=== PATIENT | male | born 1980 | race Caucasian/White ===

== ENCOUNTER 2018-03-12 19:18 | Inpatient (IN) ==
[2018-03-12] MEDS ORDERED: Sod Chloride 0.9% Inj 1,000 ML IV.SIG ONE (19:56)
[2018-03-12] MEDS ORDERED: Acetaminophen 325 MG Tablet PO ONE (19:56)
--- NOTE | 2018-03-12 20:05 | ED ---
HPI General Chief Complaint: Shortness of Breath/Dyspnea Stated Complaint: Shortness of breath Time Seen by Provider: 03/12/18 19:56 Source: patient Mode of arrival: ambulatory Limitations: no limitations History of Present Illness 37-year-old male with history of cough congestion pleuritic chest pain and developing shortness of breath over the past several days with left-sided chest discomfort for approximately a week to 2 weeks in duration. Subjective fever and chills. Patient does smoke cigarettes does admit to alcohol use denies substance use. Patient was seen in the emergency department for altered level consciousness January 27 and felt to have possibly overdosed on heroin and had ingested alcohol patient denies this. Patient takes no prescription medications denies any allergies. Patient had cough productive of rene yellow sputum. Due to progressive worsening symptoms presents now for evaluation. MD Complaint: Reports shortness of breath, cough, pain with inspiration and chest pain Onset (ago): week(s) (2) Context: Reports occurred during exertion; Denies recent illness, choking/ aspiration, medication noncompliance, allergen exposure, recent travel, smoke/ fume exposure, anxiety, trauma/injury, elevated blood glucose and CO exposure Severity: moderate Consistency/Duration: constant and progressively worsening Relieving factors: other (shallow respirations) Exacerbating factors: exertion, movement, coughing, inspiration and deep breaths Known history of: Reports asthma and IVDU (denies); Denies COPD, congestive heart failure, diabetes, recurrent pneumonia, aspiration pneumonia, HIV, PE and DVT Associated symptoms: Reports chest pain, pain with inspiration, fever, cough, sputum production (rust colored) and hemoptysis; Denies wheezing, orthopnea, lower extremity pain, polyuria, polydipsia, paresthesias, palpitations, carpopedal spasm, diaphoresis, nausea/vomiting, syncope, abdominal pain, rash, sense of impending doom, chest congestion, dizziness and lightheadedness Treatment prior to arrival: Reports none Related Data Home oxygen amount: none Home Medications Medication Instructions Recorded Confirmed No Known Home Medications 03/12/18 03/12/18 Allergies Allergy/AdvReac Type Severity Reaction Status Date / Time No Known Allergies Allergy Verified 03/12/18 19:47 Review of Systems ROS: all other systems reviewed are negative PMFSH History History Provided By: Patient (Asthma tobacco use alcohol use denies substance use) Medical History Medical History Patient denies medical problems (Acute) Surgical History Surgical History Hx of eye surgery (Acute) Social History Social History Substance History: No History of Abuse Second Hand Smoke Exposure: Yes Smoking Status: Current every day smoker Tobacco Type: Cigarettes How Often Do You Have a Drink Containing Alcohol: 2 to 3 times a week Recent Travel in [facility] within the Last 8 Weeks: No Recent Out of Country Travel within the Last 8 Weeks: No Immunization History Tetanus Immunization: <5 Years Exam Narrative Exam Narrative: GENERAL: Well-nourished, well-developed patient. No acute distress no respiratory distress. SKIN: Focused skin assessment warm/dry. HEAD: Normocephalic. EYES: No scleral icterus. No injection or drainage. NECK: Supple, trachea midline. No JVD or lymphadenopathy. CARDIOVASCULAR: Regular rate and rhythm without murmurs, gallops, or rubs. RESPIRATORY: Breath sounds equal bilaterally. No wheezing. Diminished breath sounds left base. No accessory muscle use. Chest wall: No crepitus no ecchymosis no abrasion no bony step-off or palpable abnormality. GASTROINTESTINAL: Abdomen soft, non-tender, nondistended. MUSCULOSKELETAL: No cyanosis, or edema. Bilateral dorsalis pedis and radial pulses 2+ to palpation negative Homans no calf tenderness to palpation. BACK: Nontender without obvious deformity. No CVA tenderness. Course Consultations Consultation #1: discussed with Dr Brown for admission Time: 21:53 Initial Documented Vital Signs Temperature 100.1 F H 03/12/18 19:23 Pulse Rate 94 H 03/12/18 19:23 Respiratory Rate 20 03/12/18 19:23 Blood Pressure 116/69 03/12/18 19:23 Pulse Oximetry 96 03/12/18 19:23 Last Documented Vital Signs Temperature 100.1 F H 03/12/18 19:23 Pulse Rate 94 H 03/12/18 19:23 Respiratory Rate 20 03/12/18 19:23 Blood Pressure 116/69 03/12/18 19:23 Pulse Oximetry 98 03/12/18 19:56 Medical Decision Making MDM Narrative Medical decision making narrative: 37-year-old male with tobacco use alcohol use presents with 2 weeks of pleuritic left-sided chest pain now with cough productive of rust colored sputum and fever. Patient placed on vehicle monitor technician IV access obtained specimens collected and sent for resulting patient will be evaluated for pneumonia PE pneumothorax rib fracture and atypical chest pain Chest x-ray patient has large infiltrate involving the left lower lobe and lingula no obvious lung collapse possible effusion white count is 21,000 with left shift patient presents with heart rate greater than 90 temperature elevation in the emergency department only 100.1 the patient has been experiencing fever and chills with night sweats at home. Patient's lactic acid is not elevated but has large pneumonia therefore at this point time patient does meet Sirs/sepsis criterion patient has received IV antibiotics for community-acquired pneumonia and will be admitted for ongoing IV antibiotics DuoNeb updrafts as needed will most likely need [facility] protocol in view of history of frequent alcohol use. Discussed with Dr Brown. Medical Screen Exam Complete: Yes Emergency Medical Condition: Yes Differential Diagnosis Differential Diagnosis: Pleurisy, pneumonia, PE, pneumothorax, rib fracture, atypical chest pain, ACS Medical Records Medical records reviewed: Yes I reviewed the patient's medical records. Lab Data Result diagrams: 03/12/18 20:25 03/12/18 20:25 Lab Results 03/12/18 03/12/18 03/12/18 Range/Units 20:25 20:25 20:25 CBC w Diff Slide review pending WBC 21.6 H (4.0-11.0) th/mm3 RBC 4.45 L (4.50-5.90) mil/mm3 Hgb 13.1 (13.0-17.0) gm/dL Hct 38.2 L (39.0-51.0) % MCV 85.9 (80.0-100.0) fL MCH 29.5 (27.0-34.0) pg MCHC 34.3 (32.0-36.0) % RDW 13.5 (11.6-17.2) % Plt Count 272 (150-450) th/mm3 MPV 8.4 (7.0-11.0) fL Neut % (Auto) 82.3 H (16.0-70.0) % Lymph % (Auto) 6.3 L (9.0-44.0) % [place] % (Auto) 11.2 H (0.0-8.0) % Eos % (Auto) 0.0 (0.0-4.0) % Baso % (Auto) 0.2 (0.0-2.0) % Neut # (Auto) 17.8 H (1.8-7.7) th/mm3 Lymph # (Auto) 1.4 (1.0-4.8) th/mm3 [place] # (Auto) 2.4 H (0.0-0.9) th/mm3 Eos # (Auto) 0.0 (0.0-0.4) th/mm3 Baso # (Auto) 0.0 (0.0-0.2) th/mm3 WBC Differential . Diff Scan Auto diff confirmed Differential Comment . Platelet Estimate Normal (Normal) Platelet Morphology Normal (Normal) RBC Morphology Normal (Normal) Sodium 137 (136-145) meq/L Potassium 3.7 (3.5-5.1) meq/L Chloride 103 (98-107) meq/L Carbon Dioxide 25.4 (21.0-32.0) meq/L Anion Gap 9 (5-15) meq/L BUN 10 (7-18) mg/dL Creatinine 0.89 (0.60-1.30) mg/dL Estimated GFR Greater than 89 (>89) mL/min Random Glucose 115 H (74-106) mg/dL Lactic Acid 1.1 (0.4-2.0) mmol/L Calcium 8.3 L (8.5-10.1) mg/dL Total Bilirubin 0.5 (0.2-1.0) mg/dL AST 80 H (15-37) U/L ALT 98 H (12-78) U/L Alkaline Phosphatase 169 H (45-117) U/L Troponin I Less than 0.02 L (0.02-0.05) ng/mL Total Protein 7.1 (6.4-8.2) g/dL Albumin 2.6 L (3.4-5.0) g/dL Serum Alcohol Less than 3 (0-5) mg/dL Imaging Data Radiologist's impression: Chest X-Ray 03/12/18 19:56 CONCLUSION: Large area of pneumonia on the left. Discharge Plan Discharge Disposition Patient Disposition: 30 Still Patient Discharge Condition Condition: Stable Discharge Details Diagnosis: Community acquired pneumonia, Sepsis Physicians Team ED Provider: Keturah Salcedo Primary Care Provider: Primary Care Samanta,Arlene Rxs /Orders / Referrals /Forms Prescriptions: No Action No Known Home Medications RF: 0 Discharge Interventions Interventions: Vital Signs Last Done: 03/12/18 19:23 Status ED Status: With Doctor
--- NOTE | 2018-03-12 20:14 | XR ---
EXAM DATE: 03/12/2018 8:11 PM EST AGE/SEX: 37 years / Male INDICATIONS: Shortness of breath with left side chest pain. CLINICAL DATA: This is the patient's initial encounter. Patient reports that signs and symptoms have been present for 2 weeks and indicates a pain score of 5/10. MEDICAL/SURGICAL HISTORY: None. None. COMPARISON: [facility] [place] 1[place] SING[place] AP, [place]/27/2018. . FINDINGS: Dense consolidation has developed of the left mid and lower lung, appears to involve the lower lobe a nd the lingula. Mild volume loss is noted. I don't see a pneumothorax. The right lung is clear. Heart size stable, within normal limits. CONCLUSION: Large area of pneumonia on the left. Electronically signed by: Jona Birmingham MD 03/12/2018 8:13 PM EST
[2018-03-12] MEDS ORDERED: Azithromycin Inj 500 MG in Sodium Chlor 0.9% Inj 250 ML IV.SIG ONE (20:30)
[2018-03-12] MEDS ORDERED: Ketorolac Inj 30 MG/ML (IVP) Vial IV.PUSH ONE (20:31)
[2018-03-12 20:45] LABS: Baso % (Auto) 0.2 % (0.0-2.0); Hematocrit 38.2 % (39.0-51.0); Hemoglobin 13.1 gm/dL (13.0-17.0); Lymph # (Auto) 1.4 th/mm3 (1.0-4.8); Lymph % (Auto) 6.3 % (9.0-44.0); Mean Corpuscular HGB Conc 34.3 % (32.0-36.0); Mean Corpuscular Hemoglobin 29.5 pg (27.0-34.0); Mean Corpuscular Volume 85.9 fL (80.0-100.0); Mean Platelet Volume 8.4 fL (7.0-11.0); Mono # (Auto) 2.4 th/mm3 (0.0-0.9); Mono % (Auto) 11.2 % (0.0-8.0); Neut # (Auto) 17.8 th/mm3 (1.8-7.7); Neut % (Auto) 82.3 % (16.0-70.0); Platelet Count 272 th/mm3 (150-450); Red Blood Count 4.45 mil/mm3 (4.50-5.90); Red Cell Distribution Width 13.5 % (11.6-17.2); White Blood Count 21.6 th/mm3 (4.0-11.0)
[2018-03-12 20:49] LABS: Chloride 103 meq/L (98-107); Potassium 3.7 meq/L (3.5-5.1); Sodium 137 meq/L (136-145)
[2018-03-12 20:53] LABS: Calcium 8.3 mg/dL (8.5-10.1)
[2018-03-12 20:54] LABS: Albumin 2.6 g/dL (3.4-5.0); Anion Gap 9 meq/L (5-15); Blood Urea Nitrogen 10 mg/dL (7-18); Carbon Dioxide 25.4 meq/L (21.0-32.0); Glucose,Random 115 mg/dL (74-106)
[2018-03-12 20:56] LABS: Alanine Aminotransferase 98 U/L (12-78); Aspartate Aminotransferase 80 U/L (15-37); Glomerular Filtration Rate Greater Than 89 mL/min (>89)
[2018-03-12 20:58] LABS: Total Protein 7.1 g/dL (6.4-8.2)
[2018-03-12 20:59] LABS: Alkaline Phosphatase 169 U/L (45-117)
[2018-03-12 21:07] LABS: RBC Morphology Normal (Normal)
[2018-03-12 21:08] LABS: Platelet Estimate Normal (Normal); Platelet Morphology Normal (Normal)
[2018-03-12] MEDS ORDERED: LORazepam 1 MG Tablet PO PRN (21:50)
[2018-03-12] MEDS ORDERED: Haloperidol Inj 5 MG/ML Ampul IV.PUSH PRN (21:50)
[2018-03-12] MEDS ORDERED: Bisacodyl 10 MG Supp RECTAL PRN (21:52)
[2018-03-12 22:14] LABS: Bilirubin,Urine Negative (Negative); Clarity,Urine Clear (Clear); Color,Urine Yellow (Yellw/Straw); Glucose,Urine (UA) 250 mg/dL (Negative); Leukocyte Esterase,Urine Negative (Negative); Nitrite,Urine Negative (Negative); Specific Gravity,Urine Less/Equal 1.005 (1.002-1.035)
[2018-03-12 22:22] LABS: Amphetamine Screen,Urine Neg (Neg); Bacteria,Urine Rare /hpf; Barbiturate Screen,Urine Neg (Neg); Cannabinoid Screen,Urine Neg (Neg); Cocaine Screen,Urine Neg (Neg); Mucus,Urine Rare /lpf (Occasional); RBC,Urine 0-3 /hpf (0-3); WBC,Urine 0-5 /hpf (0-5)
[2018-03-12 22:45] LABS: Opiate Screen,Urine Neg (Neg)
[2018-03-12] MEDS: Sod Chloride 0.9% Inj 1,000 ML IV.CONT SCH (22:55)
[2018-03-13] MEDS: Acetaminophen 325 MG Tablet PO PRN ×4 (04:34→21:04)
[2018-03-13 06:51] LABS: Baso % (Auto) 0.2 % (0.0-2.0); Eos # (Auto) 0.1 th/mm3 (0.0-0.4); Eos % (Auto) 0.4 % (0.0-4.0); Hematocrit 35.9 % (39.0-51.0); Lymph # (Auto) 1.2 th/mm3 (1.0-4.8); Lymph % (Auto) 5.5 % (9.0-44.0); Mean Corpuscular HGB Conc 33.5 % (32.0-36.0); Mean Corpuscular Hemoglobin 29.3 pg (27.0-34.0); Mean Corpuscular Volume 87.5 fL (80.0-100.0); Mean Platelet Volume 8.5 fL (7.0-11.0); Mono # (Auto) 2.3 th/mm3 (0.0-0.9); Mono % (Auto) 10.5 % (0.0-8.0); Neut # (Auto) 18.6 th/mm3 (1.8-7.7); Neut % (Auto) 83.4 % (16.0-70.0); Platelet Count 244 th/mm3 (150-450); Red Blood Count 4.11 mil/mm3 (4.50-5.90); Red Cell Distribution Width 13.1 % (11.6-17.2); White Blood Count 22.2 th/mm3 (4.0-11.0)
[2018-03-13 06:59] LABS: Chloride 106 meq/L (98-107); Potassium 3.5 meq/L (3.5-5.1); Sodium 139 meq/L (136-145)
[2018-03-13 07:06] LABS: Albumin 2.2 g/dL (3.4-5.0); Anion Gap 7 meq/L (5-15); Calcium 7.9 mg/dL (8.5-10.1); Carbon Dioxide 26.3 meq/L (21.0-32.0)
[2018-03-13 07:07] LABS: Blood Urea Nitrogen 11 mg/dL (7-18); Glucose,Random 118 mg/dL (74-106)
[2018-03-13 07:08] LABS: Alanine Aminotransferase 75 U/L (12-78); Aspartate Aminotransferase 49 U/L (15-37)
[2018-03-13 07:10] LABS: Glomerular Filtration Rate Greater Than 89 mL/min (>89); Total Protein 6.3 g/dL (6.4-8.2)
[2018-03-13 07:11] LABS: Alkaline Phosphatase 159 U/L (45-117)
[2018-03-13] MEDS: Sod Chloride 0.9% Inj 1,000 ML IV.CONT SCH ×2 (08:23→20:56)
[2018-03-13] MEDS ORDERED: Azithromycin 250 MG Tablet PO SCH (09:00)
[2018-03-13] MEDS ORDERED: Ketorolac Inj 30 MG/ML (IVP) Vial IV.PUSH PRN (11:30)
--- NOTE | 2018-03-13 11:31 | P.HP ---
History of Present Illness Primary Care Physician: No Primary Care Physician Chief Complaint: Shortness of breath, chest discomfort History of Present Illness: 37-year-old male with no chronic medical illnesses who presented the hospital because of progressive shortness of breath, cough, congestion, chest discomfort. Patient states that he has normal state of health until approximately 1 month ago when he snorted an illegal drug, he does not know what it was and he indicates that he became unresponsive and was choking on his own vomit. Proxy 1 week after that he started developing cough, congestion and then progressive shortness of breath, dyspnea, pain on inspiration over the last 3 weeks. He did come to the emergency department for evaluation. Patient did have workup to find multiple abnormalities to include sepsis with fever, leukocytosis, chest x-ray with almost complete whiteout of the left lung. It was recommended by ER physician that the patient be admitted for further evaluation and management. Inpatient Certification: I certify that the inpatient services were ordered in accordance with Medicare regulations governing the order. This includes certification that hospital inpatient services are reasonable and necessary and in the case of services not specified as inpatient-only under 42 CFR 419.22(n), that they are appropriately provided as inpatient services in accordance to with the 2-midnight benchmark under 43 CFR 412.3(e) Estimated Total Length of Stay (Days): 2 Plans for Post Hospital Care: Not yet determined Review of Systems All other systems reviewed negative except as stated in HPI Cardiovascular: Reports chest pain Respiratory: Reports change in phlegm color, Reports cough, Reports excessive phlegm production, Reports pain on inspiration, Reports pain with cough, Reports shortness of breath, Reports shortness of breath with activity PMFSH - History History Provided By: Patient - Medical History Medical History: Medical History (Last Reviewed 03/12/18 @ 20:03 by Keturah Salcedo MD) Patient denies medical problems - Surgical History Surgical History: Surgical History (Last Reviewed 03/12/18 @ 20:03 by Keturah Salcedo MD) Hx of eye surgery - Family History Family History: Family History (Last Updated 03/13/18 @ 11:22 by TAMMY Chamorro) Other No pertinent family history - Tobacco History Second Hand Smoke Exposure: No Tobacco Use In Past 30 Days: Yes Smoking Status: Current every day smoker Tobacco Type: Cigarettes Packs Per Day: 1 Years Smoked: 17 - Alcohol History How Often Do You Have a Drink Containing Alcohol: 2 to 3 times a week - Substance Use History Substance History: Active Abuse - Substance Use Type Other Route Used: Intravenously - Travel History Recent Travel in the [place] Within the Last 8 Weeks: No Recent Travel Out of the Country Within the Last 8 Weeks: No - Immunization History Tetanus Immunization: <5 Years Hx Influenza Vaccine This Season: No Medications and Allergies Active Medications: Active Medications Acetaminophen (Tylenol) 650 mg PO Q4H PRN PRN Reason: pain 1 to 10 Last Admin: 03/13/18 08:22 Dose: 650 mg Al Hydroxide/Mg Hydroxide (Milk Of Magnesia Liq) 30 ml PO Q12H PRN PRN Reason: Mild Constipation Albuterol (Duoneb Neb (Prn)) 1 ampul NEB Q2HR NEB PRN PRN Reason: SHORTNESS OF BREATH/WHEEZING Last Admin: 03/13/18 08:23 Dose: 1 ampul Albuterol (Duoneb Neb (Erwin)) 1 ampul NEB Q6HR WHILE AWAKE NEB ERWIN Azithromycin (Zithromax) 500 mg PO DAILY ERWIN Last Admin: 03/13/18 08:22 Dose: 500 mg Bisacodyl (Dulcolax Supp) 10 mg RECTAL DAILY PRN PRN Reason: SEVERE CONSITIPATION Flumazenil (Romazecon Inj) 0.2 mg IV.PUSH Q1M PRN PRN Reason: OVERSEDATION Haloperidol Lactate (Haldol Inj) 1 mg IV.PUSH Q15M PRN PRN Reason: for severe agitation Ceftriaxone Sodium 1,000 mg/ (Sodium Chloride) 100 mls @ 200 mls/hr IV.SIG Q24H ERWIN Sodium Chloride (Ns Inj) 1,000 mls @ 100 mls/hr IV.CONT .Q10H ERWIN Last Admin: 03/13/18 08:23 Dose: 100 mls/hr Lactulose (Lactulose Liq) 30 ml PO DAILY PRN PRN Reason: SEVERE CONSITIPATION Lorazepam (Ativan) 1 mg PO Q4H PRN PRN Reason: for CIWA 8-10 Lorazepam (Ativan) 2 mg PO Q2H PRN PRN Reason: for CIWA 11-14 Lorazepam (Ativan Inj) 2 mg IV.PUSH Q2H PRN PRN Reason: for CIWA 11-14 Lorazepam (Ativan Inj) 2 mg IV.PUSH Q15M PRN PRN Reason: for CIWA > 20 Lorazepam (Ativan Inj) 1 mg IV.PUSH Q4H PRN PRN Reason: for CIWA 8-10 Lorazepam (Ativan Inj) 2 mg IV.PUSH Q1H PRN PRN Reason: for CIWA 15-20 Sennosides (Senokot) 17.2 mg PO Q12H PRN PRN Reason: Moderate Constipation Sodium Chloride (Ns Flush) 2 ml IV.FLUSH PRN PRN PRN Reason: FLUSH AFTER USING IV ACCESS Allergies Allergy/AdvReac Type Severity Reaction Status Date / Time No Known Allergies Allergy Verified 03/12/18 19:47 Home Medications Medication Instructions Recorded Confirmed Type No Known Home Medications 03/12/18 03/12/18 History Exam Vital signs: Vital Signs 03/12/18 19:23 03/12/18 19:56 03/12/18 22:18 Temperature 100.1 F H 98.1 F Pulse Rate 94 H Respiratory Rate 20 Blood Pressure 116/69 Pulse Oximetry 96 98 03/12/18 23:25 03/13/18 00:00 03/13/18 08:26 Temperature 97.4 F L Pulse Rate 89 79 115 H Respiratory Rate 16 18 22 Blood Pressure 105/59 L 108/53 L Pulse Oximetry 97 93 L 03/13/18 08:30 Temperature 100.6 F H Pulse Rate 112 H Respiratory Rate 16 Blood Pressure 131/73 Pulse Oximetry 94 L Intake & Output 03/12/18 03/13/18 03/13/18 18:59 06:59 18:59 Intake Total 1590 / 1590 1000 / 1000 Balance 1590 / 1590 1000 / 1000 Weight 72.4 kg Intake: IV 1350 / 1350 1000 / 1000 NS Inj 1,000 ML @ 100 mls/hr IV 1000 / 1000 .CONT .Q10H ERWIN Rx#:[id number] Azithromycin Inj 500 MG In NS 250 / 250 Inj 250 ML @ 250 mls/hr IV.SIG ONCE ONE Rx#:[id number] NS Inj 1,000 ML @ Wide Open IV. 1000 / 1000 SIG BOLUS ONE Rx#:[id number] Rocephin Inj 1,000 MG In NS Inj 100 / 100 100 ML @ 200 mls/hr IV.SIG ONCE ONE Rx#:[id number] Oral 240 / 240 Other: # Voids 2 Narrative: GENERAL: Well-developed, well-nourished, in no acute distress. alert and orientated HEENT: Head is normocephalic without any lesions or masses noted. Facial features are symmetric. Eyes: Pupils equal round reactive to light. Extraocular muscles are intact. Conjunctivae were clear. Oropharyngeal: Pharynx without any erythema edema. Tongue is midline without deviation. Buccal mucosa is moist without any masses or lesions NECK: Supple without any masses. Trachea midline no deviation. No JVD, no bruits are appreciated CARDIAC: Regular rhythm, regular rate. S1/S2 are heard. No murmurs gallops or rubs. LUNGS: Patient unable to finish full sentences without taking a breath. Patient is blunting his breathing secondary to pain on the left side. Patient does have absent lung sounds with rhonchi on the left lung leyva.. No use of accessory muscles on inspiration or expiration. ABDOMEN: Soft, nontender. Nondistended. Bowel sounds heard in all 4 quadrants. No organomegaly or masses. Negative rebound, negative guarding EXTREMITIES: No edema, pulses are equal bilaterally. No cyanosis or clubbing NEUROLOGY: Mood and affect appear appropriate. Cranial nerves II through XII grossly intact. Muscle strength 5/5 in upper and lower extremities bilaterally. Deep tendon reflexes are 2+ in upper and lower extremities bilaterally. Results - Labs CBC & Chem 7: 03/13/18 06:10 03/13/18 06:10 Labs: Laboratory Results - last 24 hr 03/12/18 03/12/18 03/12/18 20:25 20:25 20:25 CBC w Diff Slide review pending WBC 21.6 H RBC 4.45 L Hgb 13.1 Hct 38.2 L MCV 85.9 MCH 29.5 MCHC 34.3 RDW 13.5 Plt Count 272 MPV 8.4 Neut % (Auto) 82.3 H Lymph % (Auto) 6.3 L [place] % (Auto) 11.2 H Eos % (Auto) 0.0 Baso % (Auto) 0.2 Neut # (Auto) 17.8 H Lymph # (Auto) 1.4 [place] # (Auto) 2.4 H Eos # (Auto) 0.0 Baso # (Auto) 0.0 WBC Differential . Diff Scan Auto diff confirmed Differential Comment . Platelet Estimate Normal Platelet Morphology Normal RBC Morphology Normal Sodium 137 Potassium 3.7 Chloride 103 Carbon Dioxide 25.4 Anion Gap 9 BUN 10 Creatinine 0.89 Estimated GFR Greater than 89 Random Glucose 115 H Lactic Acid 1.1 Calcium 8.3 L Total Bilirubin 0.5 AST 80 H ALT 98 H Alkaline Phosphatase 169 H Troponin I Less than 0.02 L Total Protein 7.1 Albumin 2.6 L Urine Color Urine Clarity Urine pH Ur Specific [place] Urine Protein Urine Glucose (UA) Urine Ketones Urine Occult Blood Urine Nitrate Urine Bilirubin Urine Urobilinogen Ur Leukocyte Esterase Urine RBC Urine WBC Urine Bacteria Urine Mucus Micro UA Comment Ur Microscopic Review Urine Culture Comments Urine Opiates Screen Ur Barbiturates Screen Ur Amphetamines Screen U Benzodiazepines Scrn Urine Cocaine Screen U Cannabinoids Screen Serum Alcohol Less than 3 03/12/18 03/12/18 03/13/18 22:00 22:00 06:10 CBC w Diff Slide review pending WBC 22.2 H RBC 4.11 L Hgb 12.0 L Hct 35.9 L MCV 87.5 MCH 29.3 MCHC 33.5 RDW 13.1 Plt Count 244 MPV 8.5 Neut % (Auto) 83.4 H Lymph % (Auto) 5.5 L [place] % (Auto) 10.5 H Eos % (Auto) 0.4 Baso % (Auto) 0.2 Neut # (Auto) 18.6 H Lymph # (Auto) 1.2 [place] # (Auto) 2.3 H Eos # (Auto) 0.1 Baso # (Auto) 0.0 WBC Differential . Diff Scan Auto diff confirmed Differential Comment . Platelet Estimate Platelet Morphology RBC Morphology Sodium Potassium Chloride Carbon Dioxide Anion Gap BUN Creatinine Estimated GFR Random Glucose Lactic Acid Calcium Total Bilirubin AST ALT Alkaline Phosphatase Troponin I Total Protein Albumin Urine Color Yellow Urine Clarity Clear Urine pH 6.0 Ur Specific [place] Less/equal 1.005 Urine Protein Negative Urine Glucose (UA) 250 H Urine Ketones Negative Urine Occult Blood Trace Urine Nitrate Negative Urine Bilirubin Negative Urine Urobilinogen 2.0 H Ur Leukocyte Esterase Negative Urine RBC 0-3 Urine WBC 0-5 Urine Bacteria Rare H Urine Mucus Rare H Micro UA Comment Culture not ind Ur Microscopic Review Microscopic reviewed Urine Culture Comments Culture not ind Urine Opiates Screen Neg Ur Barbiturates Screen Neg Ur Amphetamines Screen Neg U Benzodiazepines Scrn Neg Urine Cocaine Screen Neg U Cannabinoids Screen Neg Serum Alcohol 03/13/18 06:10 CBC w Diff WBC RBC Hgb Hct MCV MCH MCHC RDW Plt Count MPV Neut % (Auto) Lymph % (Auto) [place] % (Auto) Eos % (Auto) Baso % (Auto) Neut # (Auto) Lymph # (Auto) [place] # (Auto) Eos # (Auto) Baso # (Auto) WBC Differential Diff Scan Differential Comment Platelet Estimate Platelet Morphology RBC Morphology Sodium 139 Potassium 3.5 Chloride 106 Carbon Dioxide 26.3 Anion Gap 7 BUN 11 Creatinine 0.65 Estimated GFR Greater than 89 Random Glucose 118 H Lactic Acid Calcium 7.9 L Total Bilirubin 0.4 AST 49 H ALT 75 Alkaline Phosphatase 159 H Troponin I Total Protein 6.3 L D Albumin 2.2 L Urine Color Urine Clarity Urine pH Ur Specific [place] Urine Protein Urine Glucose (UA) Urine Ketones Urine Occult Blood Urine Nitrate Urine Bilirubin Urine Urobilinogen Ur Leukocyte Esterase Urine RBC Urine WBC Urine Bacteria Urine Mucus Micro UA Comment Ur Microscopic Review Urine Culture Comments Urine Opiates Screen Ur Barbiturates Screen Ur Amphetamines Screen U Benzodiazepines Scrn Urine Cocaine Screen U Cannabinoids Screen Serum Alcohol - Imaging Impressions Chest X-Ray 03/12/18 19:56 CONCLUSION: Large area of pneumonia on the left. Caprini VTE Risk Assessment Caprini VTE Risk Assessment: No/Low Risk (score <= 1) Caprini Risk Assessment Model: Point Value = 1 Point Value = 2 Point Value = 3 Point Value = 5 Age 41-60 Minor surgery BMI > 25 kg/m2 Swollen legs Varicose veins or History of unexplained or recurrent spontaneous Oral contraceptives or hormone replacement Sepsis (< 1 month) Serious lung disease, including pneumonia (< 1 month) Abnormal pulmonary function Acute myocardial infarction Congestive heart failure (< 1 month) History of inflammatory bowel disease Medical patient at bed rest Age 61-74 Arthroscopic surgery Major open surgery (> 45 min) Laparoscopic surgery (> 45 min) Malignancy Confined to bed (> 72 hours) Immobilizing plaster cast Central venous access Age >= 75 History of VTE Family history of VTE Factor V Leiden Prothrombin [id number] Lupus anticoagulant Anticardiolipin antibodies Elevated serum homocysteine Heparin-induced thrombocytopenia Other congenital or acquired thrombophilia Stroke (< 1 month) Elective arthroplasty Hip, pelvis, or leg fracture Acute spinal cord injury (< 1 month) Prophylaxis Regimen: Total Risk Factor Score Risk Level Prophylaxis Regimen 0-1 Low Early ambulation 2 Moderate Order ONE of the following: *Sequential Compression Device (SCD) *Heparin 5000 units SQ BID 3-4 Higher Order ONE of the following medications: *Heparin 5000 units SQ TID *Enoxaparin/Lovenox 40 mg SQ daily (WT < 150 kg, CrCl > 30 mL/min) *Enoxaparin/Lovenox 30 mg SQ daily (WT < 150 kg, CrCl > 10-29 mL/min) *Enoxaparin/Lovenox 30 mg SQ BID (WT < 150 kg, CrCl > 30 mL/min) AND/OR *Sequential Compression Device (SCD) 5 or more Highest Order ONE of the following medications: *Heparin 5000 units SQ TID (Preferred with Epidurals) *Enoxaparin/Lovenox 40 mg SQ daily (WT < 150 kg, CrCl > 30 mL/min) *Enoxaparin/Lovenox 30 mg SQ daily (WT < 150 kg, CrCl > 10-29 mL/min) *Enoxaparin/Lovenox 30 mg SQ BID (WT < 150 kg, CrCl > 30 mL/min) AND *Sequential Compression Device (SCD) Assessment and Plan - Plan Sepsis -Patient meets criteria with leukocytosis, tachycardia, pneumonia -Influenza testing was negative -Chest x-ray does indicate significant pneumonia -Blood cultures are negative for 1 day -Obtain Legionella, strep pneumonia testing -Await sputum culture results Atypical pneumonia of the left lung -Patient indicates that his symptoms started after he used an intranasal drug of unknown identity causing him to have aspiration of his emesis -Chest x-ray does show significant left lung pneumonia with almost complete white out -Request a CT scan due to the atypical nature of the x-ray and presentation. CT scan shows loculated pleural effusion with air, representing empyema -Patient was started on Rocephin and Zithromax in the emergency department. Given the atypical presentation will change to cefepime, continue Zithromax, add Flagyl -Given the CT findings of empyema, will change antibiotic coverage to vancomycin , Zosyn -Consult infectious disease -Consult cardiothoracic surgery for further recommendations -Obtain echocardiogram Elevated liver enzymes, improving -Could be secondary to polysubstance abuse -Continue to monitor liver enzymes -Obtain hepatitis panel DVT prevention -Sequential compression devices
--- NOTE | 2018-03-13 12:12 | CT ---
EXAM DATE: 03/13/2018 11:52 AM EST AGE/SEX: 37 years / Male INDICATIONS: Hypoxic and abnormal chest x-ray. Short of breath. CLINICAL DATA: This is the patient's initial encounter. Patient reports that signs and symptoms have been present for 1 week and indicates a pain score of 0/10. MEDICAL/SURGICAL HISTORY: None. . Eye surgery. RADIATION DOSE: 12.49 CTDI (mGy) COMPARISON: [facility], CHEST 1V SINGLE AP, 03/12/2018. . TECHNIQUE: Volumetric scanning was performed using a multi-row detector CT scanner during bolus infu emmanuel of 65 ml Omnipaque 350 (iohexol) nonionic water-soluble contrast as a single exam dose. The vidhya a was post processed with a variety of visualization algorithms including full volume maximum intensi ty projection and sliding thin slab reformation. Using automated exposure control and adjustment of the mA and/or kV according to patient size, radiation dose was kept as low as reasonably achievable t o obtain optimal diagnostic quality images. DICOM format image data is available electronically for review and comparison. FINDINGS: There is no evidence of PE for technique. There is a large loculated pleural effusion on the left wi th gas bubbles within it towards the posteromedial aspect and possibility of empyema should be entert ained. There is dense consolidation of the left lower lobe and/or compressive collapse. Possibility o f bronchopleural fistula is not excluded. CONCLUSION: 1. There is no evidence of PE for technique. 2. Large loculated pleural effusion with gas bubbles may represent empyema. Possibility of bronchopl eural fistula is not excluded at this time. 3. Dense consolidation and/or compressive collapse left lower lobe and perihilar location. Electronically signed by: Joseline Armendariz MD 03/13/2018 12:11 PM EST
[2018-03-13] MEDS: Folic Acid 1 MG Tablet PO SCH (12:17)
[2018-03-13] MEDS ORDERED: Vancomycin Inj 1,000 MG in Sodium Chlor 0.9% Inj 250 ML IV.SIG ONE ×2 (12:36→14:00)
[2018-03-13] MEDS ORDERED: Vancomycin Consult Pharmacy 1 EACH OTHER SCH (12:45)
[2018-03-13] MEDS: Piperacil/Tazo 4.5 GM Premix 4.5 GM/100 ML BAG IV.SIG SCH ×2 (16:29→20:59)
--- NOTE | 2018-03-13 17:13 | ECHRPT ---
Indication: Sepsis Possible Endocarditis CONCLUSIONS Normal left ventricular size. Wall thickness is normal. There is mild tricuspid valve regurgitation. The estimated pulmonary arterial pressure is 57 mmHg. No vegetations seen. BP: / HR: Rhythm: MEASUREMENTS (Male / Female) Normal Values Technical Quality:Fair 2D ECHO LV Diastolic Diameter PLAX 4.2 cm 4.2 - 5.9 / 3.9 - 5.3 cm LV Systolic Diameter PLAX 2.9 cm IVS Diastolic Thickness 0.8 cm 0.6 - 1.0 / 0.6 - 0.9 cm LVPW Diastolic Thickness 0.9 cm 0.6 - 1.0 / 0.6 - 0.9 cm LV Relative Wall Thickness 0.4 LVOT Diameter 1.9 cm Aortic Root Diameter 3.0 cm LA Systolic Diameter LX 2.9 cm 3.0 - 4.0 / 2.7 - 3.8 cm DOPPLER Mitral E Point Velocity 127.0 cm/s Mitral A Point Velocity 108.0 cm/s Mitral E to A Ratio 1.2 LV E' Lateral Velocity 16.3 cm/s Mitral E to LV E' Lateral Ratio 7.8 LV E' Septal Velocity 13.6 cm/s Mitral E to LV E' Septal Ratio 9.3 TR Peak Velocity 342.0 cm/s TR Peak Gradient 46.8 mmHg Right Atrial Pressure 10.0 mmHg Pulmonary Artery Systolic Pressu 56.8 mmHg Right Ventricular Systolic Press 56.8 mmHg PV Peak Velocity 213.0 cm/s PV Peak Gradient 18.1 mmHg FINDINGS LEFT VENTRICLE Normal left ventricular size. Wall thickness is normal. The left ventricular systolic function is normal with an estimated ejection fraction in the range of 60-65%. RIGHT VENTRICLE Normal right ventricular size and systolic function. LEFT ATRIUM The left atrial size is normal. RIGHT ATRIUM The right atrial size is normal. ATRIAL SEPTUM Normal atrial septal thickness without atrial level shunting by limited color doppler interrogation. AORTA The aortic root and proximal ascending aorta are normal in size on limited imaging. MITRAL VALVE Structurally normal mitral valve. No mitral valve stenosis or regurgitation. AORTIC VALVE Trileaflet aortic valve. No aortic valve stenosis or regurgitation. TRICUSPID VALVE There is mild tricuspid valve regurgitation. The estimated pulmonary arterial pressure is 57 mmHg. PULMONARY VALVE No pulmonary valve regurgitation or stenosis. VESSELS The inferior vena cava was not well visualized. PERICARDIUM No pericardial effusion. James Whitehead MD (Electronically Signed) Final Date:13 March 2018 17:11
[2018-03-13 18:15] LABS: Hepatitits B Surface Antigen Nonreactive (Nonreactive)
[2018-03-13 18:54] LABS: Hepatitis A IgM Antibody Nonreactive (Nonreactive)
[2018-03-13] MEDS: Vancomycin Inj 1,000 MG in Sodium Chlor 0.9% Inj 250 ML IV.SIG SCH (21:58)
[2018-03-14] MEDS: Acetaminophen 325 MG Tablet PO PRN ×2 (02:08→18:20)
[2018-03-14] MEDS: Piperacil/Tazo 4.5 GM Premix 4.5 GM/100 ML BAG IV.SIG SCH ×4 (02:09→21:19)
[2018-03-14] MEDS: Sod Chloride 0.9% Inj 1,000 ML IV.CONT SCH ×2 (05:43→15:02)
[2018-03-14] MEDS: Vancomycin Inj 1,000 MG in Sodium Chlor 0.9% Inj 250 ML IV.SIG SCH ×2 (05:45→14:59)
[2018-03-14 07:03] LABS: Baso # (Auto) 0.1 th/mm3 (0.0-0.2); Baso % (Auto) 0.4 % (0.0-2.0); Eos % (Auto) 0.1 % (0.0-4.0); Hematocrit 33.7 % (39.0-51.0); Hemoglobin 11.3 gm/dL (13.0-17.0); Lymph # (Auto) 1.3 th/mm3 (1.0-4.8); Mean Corpuscular HGB Conc 33.6 % (32.0-36.0); Mean Corpuscular Hemoglobin 29.8 pg (27.0-34.0); Mean Corpuscular Volume 88.6 fL (80.0-100.0); Mean Platelet Volume 9.5 fL (7.0-11.0); Mono # (Auto) 2.2 th/mm3 (0.0-0.9); Mono % (Auto) 11.5 % (0.0-8.0); Neut # (Auto) 15.2 th/mm3 (1.8-7.7); Platelet Count 234 th/mm3 (150-450); White Blood Count 18.8 th/mm3 (4.0-11.0)
[2018-03-14 07:22] LABS: Anion Gap 9 meq/L (5-15); Aspartate Aminotransferase 25 U/L (15-37); Blood Urea Nitrogen 10 mg/dL (7-18); Calcium 8.1 mg/dL (8.5-10.1); Chloride 109 meq/L (98-107); Glomerular Filtration Rate Greater Than 89 mL/min (>89); Glucose,Random 103 mg/dL (74-106); Potassium 3.6 meq/L (3.5-5.1); Sodium 143 meq/L (136-145)
[2018-03-14 07:24] LABS: Alanine Aminotransferase 51 U/L (12-78); Alkaline Phosphatase 145 U/L (45-117); Total Protein 6.3 g/dL (6.4-8.2)
[2018-03-14] MEDS: Folic Acid 1 MG Tablet PO SCH (09:02)
--- NOTE | 2018-03-14 10:14 | P.PN ---
Subjective Interval history: Follow-up sepsis/atypical pneumonia/empyema March 14, 2018-patient seen and examined, significant shortness of breath and speaks with short sentences. 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 Currently afebrile Physical Exam Vital signs: Vital Signs 03/13/18 12:29 03/13/18 13:59 03/13/18 15:12 Temperature 100.9 F H 99.0 F Pulse Rate 100 H 130 H 115 H Respiratory Rate 14 25 H 22 Blood Pressure 118/73 168/95 H Pulse Oximetry 95 93 L 03/13/18 20:00 03/13/18 21:19 03/14/18 00:00 Temperature 102.8 F H 100.3 F H Pulse Rate 119 H 118 H 108 H Respiratory Rate 16 24 19 Blood Pressure 143/87 H 125/64 Pulse Oximetry 95 94 L 94 L 03/14/18 04:00 03/14/18 04:23 03/14/18 07:00 Temperature 98.5 F Pulse Rate 89 71 84 Respiratory Rate 17 18 Blood Pressure 134/74 Pulse Oximetry 95 03/14/18 08:00 03/14/18 09:27 Temperature 98.6 F Pulse Rate 94 H Respiratory Rate 19 Blood Pressure 133/81 Pulse Oximetry 96 95 Intake & Output 03/13/18 03/14/18 03/14/18 18:59 06:59 18:59 Intake Total 2450 / 2450 2120 / 2120 Balance 2450 / 2450 2120 / 2120 Weight 73.1 kg Intake: IV 2450 / 2450 1700 / 1700 NS Inj 1,000 ML @ 100 mls/hr IV 1999 / 2000 1000 / 1000 .CONT .Q10H AMY Rx#:[id number] Maxipime Inj 2,000 MG In NS Inj 100 / 100 100 ML @ 200 mls/hr IV.SIG Q8H AMY Rx#:[id number] Zosyn 4.5 GM Premix 4.5 gm In 100 / 100 200 / 200 100 ml @ 200 mls/hr IV.SIG Q6H AMY Rx#:[id number] Vancomycin Inj 1,000 MG In NS 250 / 250 500 / 500 Inj 250 ML @ 250 mls/hr IV.SIG Q8H AMY Rx#:[id number] Oral 420 / 420 Other: # Voids 1 3 Weight On Admission 73.1 kg Narrative: GENERAL: Well-developed, well-nourished, in no acute distress. alert and orientated HEENT: Head is normocephalic without any lesions or masses noted. Facial features are symmetric. Eyes: Pupils equal round reactive to light. Extraocular muscles are intact. Conjunctivae were clear. Oropharyngeal: Pharynx without any erythema edema. Tongue is midline without deviation. Buccal mucosa is moist without any masses or lesions NECK: Supple without any masses. Trachea midline no deviation. No JVD, no bruits are appreciated CARDIAC: Regular rhythm, regular rate. S1/S2 are heard. No murmurs gallops or rubs. LUNGS: Patient unable to finish full sentences without taking a breath. Patient is blunting his breathing secondary to pain on the left side. Patient does have absent lung sounds with rhonchi on the left lung leyva.. No use of accessory muscles on inspiration or expiration. ABDOMEN: Soft, nontender. Nondistended. Bowel sounds heard in all 4 quadrants. No organomegaly or masses. Negative rebound, negative guarding EXTREMITIES: No edema, pulses are equal bilaterally. No cyanosis or clubbing NEUROLOGY: Mood and affect appear appropriate. Cranial nerves II through XII grossly intact. Muscle strength 5/5 in upper and lower extremities bilaterally. Deep tendon reflexes are 2+ in upper and lower extremities bilaterally. Results - Labs CBC & Chem 7: 03/14/18 04:40 03/14/18 04:40 Laboratory Results - last 24 hr 03/13/18 03/14/18 03/14/18 13:05 04:40 04:40 WBC 18.8 H RBC 3.80 L Hgb 11.3 L Hct 33.7 L MCV 88.6 MCH 29.8 MCHC 33.6 RDW 14.0 Plt Count 234 MPV 9.5 Prelim Diff (Auto) Slide review pending Neut % (Auto) 81.0 H Lymph % (Auto) 7.0 L [place] % (Auto) 11.5 H Eos % (Auto) 0.1 Baso % (Auto) 0.4 Neut # (Auto) 15.2 H Lymph # (Auto) 1.3 [place] # (Auto) 2.2 H Eos # (Auto) 0.0 Baso # (Auto) 0.1 WBC Differential . Diff Scan Auto diff confirmed Differential Comment . Sodium 143 Potassium 3.6 Chloride 109 H Carbon Dioxide 25.0 Anion Gap 9 BUN 10 Creatinine 0.77 Estimated GFR Greater than 89 Random Glucose 103 Calcium 8.1 L Total Bilirubin 0.4 AST 25 ALT 51 Alkaline Phosphatase 145 H Total Protein 6.3 L Albumin 2.0 L Vancomycin Trough Cancelled Hepatitis A IgM Ab Nonreactive Hep Bs Antigen Nonreactive Hep B Core IgM Ab Nonreactive Hep C IgG Ab Nonreactive Microbiology 03/13/18 16:40 Urine - Random Urine Streptococcus pneumoniae Antigen (M - Final Presumptive negative for streptococcus pneumoniae antigen, suggesting no current or recent infection. Infection due to Streptococcus pneumoniae cannot be ruled out since the antigen present in the sample may be below the detection limit of the test. 03/13/18 16:40 Urine - Random Urine Legionella Antigen - Final Presumptive negative for Legionella pneumophila serogroup 1 antigen in urine, suggesting no recent or recurrent infection. Infection due to Legionella cannot be ruled out since other serogroups and species may cause disease, antigen may not be present in urine in early infection, and the level of antigen present in the urine may be below the detection limit of the test. 03/12/18 20:30 Blood - Peripheral Aerobic Blood Culture - Preliminary No growth in 1 day 03/12/18 20:30 Blood - Peripheral Anaerobic Blood Culture - Preliminary No growth in 1 day 03/12/18 20:25 Blood - Peripheral Aerobic Blood Culture - Preliminary No growth in 1 day 03/12/18 20:25 Blood - Peripheral Anaerobic Blood Culture - Preliminary No growth in 1 day 03/12/18 22:00 Sputum - Expectorated Sputum Gram Stain - Final - Imaging Impressions Chest CTA 03/13/18 00:00 CONCLUSION: 1. There is no evidence of PE for technique. 2. Large loculated pleural effusion with gas bubbles may represent empyema. Possibility of bronchopleural fistula is not excluded at this time. 3. Dense consolidation and/or compressive collapse left lower lobe and perihilar location. Assessment and Plan - Plan 37-year-old man with Sepsis secondary to empyema Currently on IV vancomycin and Zosyn pending culture report 2D echo report noted Atypical pneumonia Empyema CT chest noted and reviewed with finding of large left loculated pleural effusion with gas bubble represented empyema Continue with IV antibiotics including vancomycin and Zosyn pending consultation from infectious disease specialist CTS consultation pending for evaluation for possible VATS Continue current breathing treatment, DuoNeb and maintain oxygen saturation above 92% 2D echo report noted History of IVDU Extensively counseled against 2D echo report noted SHAYLA? Transaminitis-resolved hepatitis panel negative DVT prevention -Sequential compression devices
--- NOTE | 2018-03-14 13:20 | P.CON ---
History of Present Illness Service: Cardiothoracic surgery Requesting Physician: sOiel Crockett Reason for Consult: Empyema Primary Care Provider: Arlene Primary Care Physician Chief Complaint: Shortness of breath, chest discomfort History of Present Illness: 37-year-old young man with a known history of previous IV drug use, who presents with a one-month history of progressive fevers chills or shortness of breath following nasal inhalation of an unknown agent. Patient has been seen here evaluated further workup including a chest CT was performed, which revealed a large left pleural effusion with associated air bubbles in right suggestive of an empyema. I am now be considered for surgical therapy. At the present time he is short of breath at rest with satisfactory saturations on supplemental oxygen therapy. Review of Systems All other systems reviewed negative except as stated in [facility] - History History Provided By: Patient - Medical History Medical History: Medical History (Last Reviewed 03/12/18 @ 20:03 by Keturah Salcedo MD) Patient denies medical problems - Surgical History Surgical History: Surgical History (Last Reviewed 03/12/18 @ 20:03 by Keturah Salcedo MD) Hx of eye surgery - Family History Family History: Family History (Last Updated 03/13/18 @ 11:22 by TAMMY Chamorro) Other No pertinent family history - Tobacco History Second Hand Smoke Exposure: No Tobacco Use In Past 30 Days: Yes Smoking Status: Current every day smoker Tobacco Type: Cigarettes Packs Per Day: 1 Years Smoked: 17 - Alcohol History How Often Do You Have a Drink Containing Alcohol: 2 to 3 times a week - Substance Use History Substance History: Active Abuse - Substance Use Type Other Route Used: Intravenously - Travel History Recent Travel in the [place] Within the Last 8 Weeks: No Recent Travel Out of the Country Within the Last 8 Weeks: No - Immunization History Tetanus Immunization: <5 Years Hx Influenza Vaccine This Season: No Medications and Allergies Active Medications: Active Medications Acetaminophen (Tylenol) 650 mg PO Q4H PRN PRN Reason: pain 1 to 10 Last Admin: 03/13/18 13:58 Dose: 650 mg Acetaminophen (Tylenol) 650 mg PO Q4H PRN PRN Reason: BREWSTER, fever Last Admin: 03/14/18 02:08 Dose: 650 mg Al Hydroxide/Mg Hydroxide (Milk Of Magnesia Liq) 30 ml PO Q12H PRN PRN Reason: Mild Constipation Albuterol (Duoneb Neb (Prn)) 1 ampul NEB Q2HR NEB PRN PRN Reason: SHORTNESS OF BREATH/WHEEZING Last Admin: 03/13/18 08:23 Dose: 1 ampul Albuterol (Duoneb Neb (Erwin)) 1 ampul NEB Q6HR WHILE AWAKE NEB COUNTS INCLUDE 234 BEDS AT THE [facility] Last Admin: 03/14/18 11:25 Dose: 1 ampul Bisacodyl (Dulcolax Supp) 10 mg RECTAL DAILY PRN PRN Reason: SEVERE CONSITIPATION Folic Acid (Folic Acid) 1 mg PO DAILY COUNTS INCLUDE 234 BEDS AT THE [facility] Last Admin: 03/14/18 09:02 Dose: 1 mg Sodium Chloride (Ns Inj) 1,000 mls @ 100 mls/hr IV.CONT .Q10H COUNTS INCLUDE 234 BEDS AT THE [facility] Last Admin: 03/14/18 05:43 Dose: 100 mls/hr Pharmacy Profile Note (Vancomycin Consult Pharmacy) 0 mls @ 0 mls/hr OTHER UNSCH COUNTS INCLUDE 234 BEDS AT THE [facility] Piperacillin/Tazobactam/Dextrose (Zosyn 4.5 Gm Premix) 4.5 gm in 100 mls @ 200 mls/hr IV.SIG Q6H COUNTS INCLUDE 234 BEDS AT THE [facility] Last Infusion: 03/14/18 09:35 Dose: Infused Vancomycin HCl 1,000 mg/ (Sodium Chloride) 250 mls @ 250 mls/hr IV.SIG Q8H COUNTS INCLUDE 234 BEDS AT THE [facility] Last Infusion: 03/14/18 06:50 Dose: Infused Ketorolac Tromethamine (Toradol Inj) 30 mg IV.PUSH Q6H PRN PRN Reason: PAIN SCALE 6 TO 10 Lactulose (Lactulose Liq) 30 ml PO DAILY PRN PRN Reason: SEVERE CONSITIPATION Miscellaneous Information ([facility] Ordered Lab Info) 0 each OTHER ONCE ONE Stop: 03/14/18 13:46 Ondansetron HCl (Zofran Inj) 4 mg IV.PUSH Q6H PRN PRN Reason: NAUSEA Last Admin: 03/13/18 20:38 Dose: 4 mg Sennosides (Senokot) 17.2 mg PO Q12H PRN PRN Reason: Moderate Constipation Sodium Chloride (Ns Flush) 2 ml IV.FLUSH PRN PRN PRN Reason: FLUSH AFTER USING IV ACCESS Thiamine HCl (Vitamin B1) 100 mg PO DAILY COUNTS INCLUDE 234 BEDS AT THE [facility] Last Admin: 03/14/18 09:02 Dose: 100 mg Allergies Allergy/AdvReac Type Severity Reaction Status Date / Time No Known Allergies Allergy Verified 03/12/18 19:47 Home Medications Medication Instructions Recorded Confirmed Type No Known Home Medications 03/12/18 03/12/18 History Physical Exam Vital signs: Vital Signs 03/13/18 13:59 03/13/18 15:12 03/13/18 20:00 Temperature 99.0 F 102.8 F H Pulse Rate 130 H 115 H 119 H Respiratory Rate 25 H 22 16 Blood Pressure 168/95 H 143/87 H Pulse Oximetry 93 L 95 03/13/18 21:19 03/14/18 00:00 03/14/18 04:00 Temperature 100.3 F H 98.5 F Pulse Rate 118 H 108 H 89 Respiratory Rate 24 19 17 Blood Pressure 125/64 134/74 Pulse Oximetry 94 L 94 L 95 03/14/18 04:23 03/14/18 07:00 03/14/18 08:00 Temperature 98.6 F Pulse Rate 71 84 94 H Respiratory Rate 18 19 Blood Pressure 133/81 Pulse Oximetry 96 03/14/18 09:27 03/14/18 11:17 03/14/18 11:27 Temperature Pulse Rate 80 Respiratory Rate 18 Blood Pressure Pulse Oximetry 95 95 Intake & Output 03/13/18 03/14/18 03/14/18 18:59 06:59 18:59 Intake Total 2450 / 2450 2120 / 2120 100 / 100 Balance 2450 / 2450 2120 / 2120 100 / 100 Weight 73.1 kg Intake: IV 2450 / 2450 1700 / 1700 100 / 100 NS Inj 1,000 ML @ 100 mls/hr IV 2000 / 2000 1000 / 1000 .CONT .Q10H ERWIN Rx#:[id number] Maxipime Inj 2,000 MG In NS Inj 100 / 100 100 ML @ 200 mls/hr IV.SIG Q8H ERWIN Rx#:[id number] Zosyn 4.5 GM Premix 4.5 gm In 100 / 100 200 / 200 100 / 100 100 ml @ 200 mls/hr IV.SIG Q6H ERWIN Rx#:[id number] Vancomycin Inj 1,000 MG In NS 250 / 250 500 / 500 Inj 250 ML @ 250 mls/hr IV.SIG Q8H ERWIN Rx#:[id number] Oral 420 / 420 Other: # Voids 1 3 Weight On Admission 73.1 kg - Constitutional mild distress, average body habitus - Routine HEENT Exam Head: Present: normocephalic, atraumatic Eye: Present: EOMI, PERRL ENT: Present: mucous membranes moist - Routine Neck Exam Present: supple, full ROM. Absent: JVD, carotid bruit, lymphadenopathy - Routine Respiratory Exam Present: accessory muscle use, decreased breath sounds Comments: Decreased breath sounds the left hemithorax throughout the entire chest - Routine Cardiovascular Exam Present: RRR, S1, S2. Absent: murmur, gallop, rubs - Routine Abdominal Exam Present: soft, normoactive bowel sounds. Absent: tenderness, distended, rebound - Routine Extremities Exam Present: full ROM, pulses intact, normal capillary refill. Absent: cyanosis, clubbing, edema - Routine Skin Exam Present: intact. Absent: cyanosis, erythema - Routine Neurological Exam Present: alert, oriented X3, CN II-XII intact, normal reflexes. Absent: sensory deficit, motor deficit - Routine Psychiatric Exam Present: normal affect, normal thought process Assessment and Plan - Assessment (1) Empyema of lung Code(s): J86.9 - Pyothorax without fistula Status: Acute (2) Community acquired pneumonia Code(s): J18.9 - Pneumonia, unspecified organism Status: Acute (3) Sepsis Code(s): A41.9 - Sepsis, unspecified organism Status: Acute - Plan The clinical and radiographic findings were discussed in detail with the patient today. Therapeutic options available including left thoracoscopy with possible thoracotomy and decortication was recommended. I have offered to perform the procedure tomorrow afternoon, however, at this point the patient wants to consider it further before agreeing to it. He understands that the longer he delayed the procedure the more likelihood that this infection could spread and result of progressive sepsis. I will follow-up with him tomorrow again to see if he has made a decision in that regard. Thank you for allowing me to participate in the care of this patient.
[2018-03-14] MEDS ORDERED: Pharmacy Ordered Lab Info OTHER ONE (13:45)
[2018-03-14] MEDS: Vancomycin Inj 1,250 MG in Sodium Chlor 0.9% Inj 250 ML IV.SIG SCH (21:59)
[2018-03-15] MEDS: Piperacil/Tazo 4.5 GM Premix 4.5 GM/100 ML BAG IV.SIG SCH ×5 (01:23→21:00)
[2018-03-15] MEDS: Sod Chloride 0.9% Inj 1,000 ML IV.CONT SCH ×5 (01:23→23:43)
[2018-03-15] MEDS: Acetaminophen 325 MG Tablet PO PRN ×2 (01:39→09:18)
[2018-03-15] MEDS: Vancomycin Inj 1,250 MG in Sodium Chlor 0.9% Inj 250 ML IV.SIG SCH ×4 (06:26→23:12)
--- NOTE | 2018-03-15 07:27 | MB ---
cc: Michael Faye MD DATE: 03/14/2018 REQUESTING PHYSICIAN: TAMMY Herndon. REASON: Sepsis, empyema. HISTORY OF PRESENT ILLNESS: This is a 37-year-old white male, who presented to Emergency Room with chest pain. The patient notes that he has been feeling sick for the past 3 weeks with pain in his left side of the chest. He said that he had pulled a muscle. He was using a TENS unit from a friend, but the pain was not improving. He was evaluated in the emergency department and was noted to have altered consciousness and they felt like he may have overdosed on heroin. The patient, however, denies using any drugs. He states that he used IV drugs in the past and he quit in 2009. He notes that he was starting to develop cough with rene sputum and his breathing was getting worse before admission. The patient had a temperature of 100.1. The white count was elevated at 21.6. Chest x-ray reveals a large area of pneumonia on the left side. Chest CTA showed no evidence of PE. A large loculated pleural effusion with gas bubbles felt to represent empyema. Dense consolidation and compressive collapse of the left lower lung and perihilar location noted. The patient states gets this every time he takes a deep breath. He notes that he gets sweats at night, but no significant chills. The patient notes that his pain was as high as 10/10 scale. Today, he states that it is down to about a 6. His white count has decreased to 18.8 today. Blood cultures have no growth in 2 days. Urine legionella and Streptococcus antigen negative. Sputum culture has heavy growth of normal respiratory theresa. The patient had temperature spike to 102.8 degrees yesterday evening. He denies headache, nausea, vomiting, dysuria. He denies ever having passed out in recent weeks. He denies sick exposure to persons who have been sick with a cough. PAST MEDICAL HISTORY: Denies active medical problems. History of eye surgery. ALLERGIES: NO KNOWN DRUG ALLERGIES. MEDICATIONS: 1. Albuterol. 2. Toradol. 3. Bactrim 4. Vancomycin. 5. Thiamine. 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 Positive tobacco use. No alcohol. Denies illicit drugs. FAMILY HISTORY: Noncontributory. REVIEW OF SYSTEMS: All systems have been reviewed and negative except for features mentioned in history of present illness. PHYSICAL EXAMINATION: GENERAL: Well-developed male, who is in no acute distress. VITAL SIGNS: Temperature 98.6, heart rate 80, respirations 18. HEENT: Head atraumatic. Extraocular movements grossly intact. Pupils reactive to light. No icterus. No conjunctival erythema. Oropharynx moist mucosa without lesions or thrush. NECK: Supple, no adenopathy. LUNGS: Decreased breath sounds with rhonchi at the left base. HEART: Regular S1, S2, without audible murmurs, rubs or gallops. ABDOMEN: Bowel sounds present. Soft, no tenderness appreciated. RECTAL: Not performed. EXTREMITIES: No clubbing, cyanosis or edema. SKIN: No rash. NEUROLOGIC: Nonfocal. PSYCHIATRIC: The patient is calm and cooperative. LABORATORY DATA: WBC 18.8, platelets 234. hemoglobin 11.3, and 81% neutrophils. Creatinine 0.77, BUN 10, sodium 143. IMPRESSION: 1. Empyema of the left lung. 2. Pneumonia of the left lung. The patient has loculated empyema and is due to undergo thoracotomy by cardiovascular surgery. RECOMMENDATIONS: 1. Continue vancomycin. 2. Continue piperacillin/tazobactam. 3. Follow culture when the surgical procedure is performed. 4. Monitor white blood cell count. 5. Monitor temperature. 6. Monitor clinical status. Thank you for this consultation. I will follow the patient's progress along with you. MD BECKIE Cary/em , 02:24 PM , 02:36 PM ROGERIO
[2018-03-15] MEDS: Folic Acid 1 MG Tablet PO SCH (09:17)
--- NOTE | 2018-03-15 10:52 | P.PN ---
Subjective Interval history: Follow-up sepsis/atypical pneumonia/empyema March 14, 2018-patient seen and examined, significant shortness of breath and speaks with short sentences. 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 Currently afebrile March 15, 2018-patient seen and examined, spiking fever overnight. Still with shortness of breath. Plan for VATS tomorrow Physical Exam Vital signs: Vital Signs 03/14/18 11:17 03/14/18 11:27 03/14/18 12:00 Temperature 100 F H Pulse Rate 80 107 H Respiratory Rate 18 24 Blood Pressure 123/66 Pulse Oximetry 95 94 L 03/14/18 16:00 03/14/18 19:48 03/14/18 20:00 Temperature 99.7 F H 100.0 F H Pulse Rate 111 H 111 H 101 H Respiratory Rate 20 20 18 Blood Pressure 137/73 130/83 Pulse Oximetry 94 L 94 L 94 L 03/14/18 23:41 03/14/18 23:42 03/15/18 04:00 Temperature 100.5 F H 98.8 F Pulse Rate 85 61 Respiratory Rate 20 18 Blood Pressure 157/85 H 126/68 Pulse Oximetry 93 L 93 L 97 03/15/18 07:52 03/15/18 08:00 Temperature 99.1 F Pulse Rate 104 H 81 Respiratory Rate 18 20 Blood Pressure 137/75 Pulse Oximetry 95 95 Intake & Output 03/14/18 03/15/18 03/15/18 18:59 06:59 18:59 Intake Total 3520 / 3520 1942.5 / 1942.5 265 / 265 Output Total 1000 / 1000 Balance 3519 / 3519 942.5 / 942.5 265 / 265 Weight 73.5 kg Intake: IV 1450 / 1450 1462.5 / 1462.5 265 / 265 NS Inj 1,000 ML @ 100 mls/hr IV 1000 / 1000 1000 / 1000 .CONT .Q10H AMY Rx#:[id number] Zosyn 4.5 GM Premix 4.5 gm In 200 / 200 200 / 200 100 ml @ 200 mls/hr IV.SIG Q6H AMY Rx#:[id number] Vancomycin Inj 1,000 MG In NS 250 / 250 Inj 250 ML @ 250 mls/hr IV.SIG Q8H AMY Rx#:[id number] Vancomycin Inj 1,250 MG In NS 262.5 / 262.5 265 / 265 Inj 250 ML @ 250 mls/hr IV.SIG Q8H AMY Rx#:[id number] Oral 420 / 420 480 / 480 Oral Supplement 1650 / 1650 Output: Urine 1000 / 1000 Stool Other: Date of Last Bowel Movement 03/14/18 # Bowel Movements 0 Narrative: GENERAL: Well-developed, well-nourished, in no acute distress. alert and orientated HEENT: Head is normocephalic without any lesions or masses noted. Facial features are symmetric. Eyes: Pupils equal round reactive to light. Extraocular muscles are intact. Conjunctivae were clear. Oropharyngeal: Pharynx without any erythema edema. Tongue is midline without deviation. Buccal mucosa is moist without any masses or lesions NECK: Supple without any masses. Trachea midline no deviation. No JVD, no bruits are appreciated CARDIAC: Regular rhythm, regular rate. S1/S2 are heard. No murmurs gallops or rubs. LUNGS: Patient unable to finish full sentences without taking a breath. Patient is blunting his breathing secondary to pain on the left side. Patient does have absent lung sounds with rhonchi on the left lung leyva.. No use of accessory muscles on inspiration or expiration. ABDOMEN: Soft, nontender. Nondistended. Bowel sounds heard in all 4 quadrants. No organomegaly or masses. Negative rebound, negative guarding EXTREMITIES: No edema, pulses are equal bilaterally. No cyanosis or clubbing NEUROLOGY: Mood and affect appear appropriate. Cranial nerves II through XII grossly intact. Muscle strength 5/5 in upper and lower extremities bilaterally. Deep tendon reflexes are 2+ in upper and lower extremities bilaterally. Results - Labs CBC & Chem 7: 03/14/18 04:40 03/14/18 04:40 Laboratory Results - last 24 hr 03/14/18 13:30 Vancomycin Trough 7.3 Microbiology 03/12/18 22:00 Sputum - Expectorated Sputum Gram Stain - Final 03/12/18 22:00 Sputum - Expectorated Sputum Sputum Culture - Preliminary Heavy growth normal respiratory theresa at 24 hours 03/12/18 20:30 Blood - Peripheral Aerobic Blood Culture - Preliminary No growth in 2 days 03/12/18 20:30 Blood - Peripheral Anaerobic Blood Culture - Preliminary No growth in 2 days 03/12/18 20:25 Blood - Peripheral Aerobic Blood Culture - Preliminary No growth in 2 days 03/12/18 20:25 Blood - Peripheral Anaerobic Blood Culture - Preliminary No growth in 2 days 03/13/18 16:40 Urine - Random Urine Streptococcus pneumoniae Antigen (M - Final Presumptive negative for streptococcus pneumoniae antigen, suggesting no current or recent infection. Infection due to Streptococcus pneumoniae cannot be ruled out since the antigen present in the sample may be below the detection limit of the test. 03/13/18 16:40 Urine - Random Urine Legionella Antigen - Final Presumptive negative for Legionella pneumophila serogroup 1 antigen in urine, suggesting no recent or recurrent infection. Infection due to Legionella cannot be ruled out since other serogroups and species may cause disease, antigen may not be present in urine in early infection, and the level of antigen present in the urine may be below the detection limit of the test. Assessment and Plan - Plan 37-year-old man with Sepsis secondary to empyema Currently on IV vancomycin and Zosyn pending culture report 2D echo report noted Atypical pneumonia of left lung Empyema of left lung CT chest noted and reviewed with finding of large left loculated pleural effusion with gas bubble represented empyema Continue with IV antibiotics including vancomycin and Zosyn per infectious disease specialist pending Culture reports CTS input appreciated; plan VATS +/-thoracotomy and decortication tomorrow Continue current breathing treatment, DuoNeb and maintain oxygen saturation above 92% 2D echo report noted History of IVDU Extensively counseled against 2D echo report noted Transaminitis-resolved hepatitis panel negative DVT prevention -Sequential compression devices
[2018-03-15] MEDS ORDERED: Sodium Chlor 0.9% Inj 20 ML, Bupivacaine Liposo PF 1.3% Inj 20 ML, Dexamethasone PF Inj... IRRIGATION ONE ×4 (13:51)
[2018-03-15] MEDS ORDERED: Normosol-R pH 7.4 Inj 1,000 ML IV.CONT ONE (14:36)
[2018-03-15] MEDS ORDERED: Phenylephrine/NS 1000 MCG/10ML Syringe IV.PUSH ONE (14:36)
[2018-03-15] MEDS ORDERED: Glycopyrrolate Inj 1 MG/5 ML Syringe IV.PUSH ONE (14:36)
[2018-03-15] MEDS ORDERED: Lidocaine PF 1% Inj 5 ML Syringe OTHER ONE (14:36)
[2018-03-15] MEDS ORDERED: Sodium Chlor 0.9% Inj 500 ML IV.CONT ONE (14:36)
[2018-03-15] MEDS ORDERED: Neostigmine Inj 5 MG/5 ML Syringe IV.PUSH ONE (14:36)
[2018-03-15] MEDS ORDERED: Sugammadex Inj 200 MG/2 ML Vial IV.PUSH ONE (16:37)
[2018-03-15] MEDS ORDERED: *Meperidine Inj 25 MG/ML Vial PERIprocedural Use ONLY ONE (16:45)
[2018-03-15] MEDS ORDERED: fentaNYL Citrate Inj 100 MCG/2 ML Ampul ONE (16:54)
[2018-03-15] MEDS ORDERED: Post-op Orders (for Pharmacy) OTHER STA (17:09)
--- NOTE | 2018-03-15 17:59 | P.OP ---
Date of procedure: 03/15/18 Anesthesia: GETA Surgeon: Joanne Green MD Operation and Findings: PREOPERATIVE DIAGNOSES 1. Left loculated pleural effusions and empyema 2. Consolidated lung 3. Pneumonia POSTOPERATIVE DIAGNOSES Same SURGICAL PROCEDURE 1. Left video-Assisted Thoracoscopic Surgery (VATS). 2. Drainage of loculated pleural fluid cavities 3. Decortication 4. Intercostal Nerve Block SURGEON Joanne Green MD BULK DELIVERY DRIVER LUZMA Toribio ANESTHESIA General double lumen endotracheal. VETERINARY SURGERY TECHNOLOGIST BELLE Leal MD PREPARATION ChloraPrep. COUNTS Needle, sponge, and instrument counts are correct. DRAINS One 32 Fr Chest tube COMPLICATIONS None. INDICATIONS The patient is a 37yo presenting with pneumonia and left empyema. The patient is being brought to the operating room for drainage procedure. DESCRIPTION OF PROCEDURE The patient was brought to the operating room and placed supine on the OR table. Following the induction of adequate general double lumen endotracheal anesthesia and placement of appropriate monitoring devices, the patient was placed in the right lateral decubitus position. The left chest and surrounding areas were then prepped and draped in a standard sterile fashion. A 5 mm camera port was introduced into the 8th intercostal space in mid axillary line, and the camera introduced. A second 5 mm port was then placed posteriorly under direct visual guidance. The right pleural space was explored and multiple loculated fluid pockets were identified. Additionally the left lung appeared quite consolidated. Loculations were carefully broken up with blunt dissection and the fluid pockets evacuated. Approximately 600 mL's of serosanguineous fluid was evacuated and sent for histologic and microbiologic analysis. The lung was circumferentially decorticated. The anterior port was removed and a 32 Fr chest tube was placed. This was maintained in place with a nonabsorbable suture. Both of the entry sites were injected with Exparel solution. Following confirmation of the catheter in the proper place, the incision was closed in 2 layers. The chest tube was attached to a suction device, and sterile dressing applied. Intercostal nerve block was performed using Exparel solution. The patient tolerated the procedure well and was extubated and transferred to the recovery room in stable condition.
--- NOTE | 2018-03-15 18:01 | XR ---
EXAM DATE: 03/15/2018 5:58 PM EST AGE/SEX: 37 years / Male INDICATIONS: Post thoracotomy. CLINICAL DATA: This is the patient's initial encounter. Patient reports that signs and symptoms have been present for 1 day and indicates a pain score of 5/10. MEDICAL/SURGICAL HISTORY: None. None. COMPARISON: HPO, CHEST 1V SINGLE AP, 03/12/2018. . FINDINGS: Status post a left thoracotomy. There is a left-sided chest tube in place. No evidence of pneumothora x. There continues to be infiltrate throughout the left lung. The right lung remains grossly clear an d well-aerated. The heart size is stable. The bony structures are grossly stable. CONCLUSION: 1. Status post left thoracotomy with placement of left-sided chest tube. 2. No evidence of pneumothorax. Electronically signed by: Lazaro Carr MD 03/15/2018 6:00 PM EST
[2018-03-16] MEDS: Piperacil/Tazo 4.5 GM Premix 4.5 GM/100 ML BAG IV.SIG SCH ×4 (01:38→20:29)
[2018-03-16 05:01] LABS: Baso % (Auto) 0.1 % (0.0-2.0); Hemoglobin 10.5 gm/dL (13.0-17.0); Lymph # (Auto) 0.8 th/mm3 (1.0-4.8); Lymph % (Auto) 7.2 % (9.0-44.0); Mean Corpuscular HGB Conc 32.9 % (32.0-36.0); Mean Corpuscular Hemoglobin 29.1 pg (27.0-34.0); Mean Corpuscular Volume 88.5 fL (80.0-100.0); Mean Platelet Volume 8.9 fL (7.0-11.0); Mono # (Auto) 0.9 th/mm3 (0.0-0.9); Mono % (Auto) 7.9 % (0.0-8.0); Neut # (Auto) 9.8 th/mm3 (1.8-7.7); Neut % (Auto) 84.8 % (16.0-70.0); Platelet Count 278 th/mm3 (150-450); Red Blood Count 3.62 mil/mm3 (4.50-5.90); Red Cell Distribution Width 14.3 % (11.6-17.2); White Blood Count 11.6 th/mm3 (4.0-11.0)
[2018-03-16 05:34] LABS: Vancomycin,Trough 19.3 mcg/mL (5.0-10.0)
[2018-03-16 05:36] LABS: Anion Gap 11 meq/L (5-15); Blood Urea Nitrogen 6 mg/dL (7-18); Carbon Dioxide 28.1 meq/L (21.0-32.0); Chloride 102 meq/L (98-107); Glomerular Filtration Rate Greater Than 89 mL/min (>89); Glucose,Random 151 mg/dL (74-106); Potassium 3.7 meq/L (3.5-5.1); Sodium 141 meq/L (136-145)
[2018-03-16] MEDS ORDERED: Pharmacy Ordered Lab Info OTHER ONE (05:45)
[2018-03-16] MEDS: Vancomycin Inj 1,250 MG in Sodium Chlor 0.9% Inj 250 ML IV.SIG SCH ×3 (06:23→21:25)
[2018-03-16] MEDS: Sod Chloride 0.9% Inj 1,000 ML IV.CONT SCH (07:32)
[2018-03-16] MEDS: Folic Acid 1 MG Tablet PO SCH (09:30)
--- NOTE | 2018-03-16 10:00 | P.PN ---
Subjective Interval history: Follow-up sepsis/atypical pneumonia/empyema March 16, 2018-patient seen and examined; patient status post VATS. States not he can breathe better and denies any significant shortness of breath. Physical Exam Vital signs: Vital Signs 03/15/18 12:00 03/15/18 16:45 03/15/18 17:00 Temperature 99.6 F 98.6 F Pulse Rate 79 120 H 89 Respiratory Rate 22 22 16 Blood Pressure 132/76 136/85 125/74 Pulse Oximetry 96 94 L 98 03/15/18 17:15 03/15/18 17:30 03/15/18 17:45 Temperature 98.6 F Pulse Rate 85 82 87 Respiratory Rate 22 18 22 Blood Pressure 121/72 116/71 121/76 Pulse Oximetry 95 94 L 96 03/15/18 18:00 03/15/18 18:33 03/15/18 19:00 Temperature 98.8 F Pulse Rate 82 84 85 Respiratory Rate 22 23 18 Blood Pressure 122/75 133/63 Pulse Oximetry 97 95 03/15/18 20:00 03/16/18 00:00 03/16/18 04:00 Temperature 98.9 F 99.2 F 97.9 F Pulse Rate 84 73 79 Respiratory Rate 20 18 18 Blood Pressure 126/72 111/69 118/70 Pulse Oximetry 97 94 L 96 03/16/18 07:51 03/16/18 08:00 Temperature 97.9 F Pulse Rate 65 67 Respiratory Rate 16 18 Blood Pressure 128/71 Pulse Oximetry 96 95 Intake & Output 03/15/18 03/16/18 03/16/18 18:59 06:59 18:59 Intake Total 2766.5 / 2766.5 1910.5 / 1910.5 265.5 / 265.5 Output Total 1000 / 1000 1750 / 1750 Balance 1766.5 / 1766.5 160.5 / 160.5 265.5 / 265.5 Weight 73.1 kg Intake: IV 1446.5 / 1446.5 470.5 / 470.5 265.5 / 265.5 NS Inj 1,000 ML @ 100 mls/hr IV 719 / 719 0 / 0 .CONT .Q10H AMY Rx#:[id number] Zosyn 4.5 GM Premix 4.5 gm In 200 / 200 205 / 205 100 ml @ 200 mls/hr IV.SIG Q6H AMY Rx#:[id number] Vancomycin Inj 1,250 MG In NS 527.5 / 527.5 265.5 / 265.5 265.5 / 265.5 Inj 250 ML @ 250 mls/hr IV.SIG Q8H AMY Rx#:[id number] Oral 220 / 220 1440 / 1440 Anesthesia Amount 1100 / 1100 Output: Urine 1600 / 1600 Estimated Blood Loss 200 / 200 Urine Amount (Catheter) 550 / 550 Indwelling Urethral Catheter 550 / 550 Wound Drainage 150 / 150 Left Posterior Chest 150 / 150 Chest Tube Drainage 250 / 250 #1 Left Mid-Axillary Chest 250 / 250 Other: Date of Last Bowel Movement 03/14/18 03/14/18 # Bowel Movements 0 Narrative: GENERAL: Well-developed, well-nourished, in no acute distress. alert and orientated HEENT: Head is normocephalic without any lesions or masses noted. Facial features are symmetric. Eyes: Pupils equal round reactive to light. Extraocular muscles are intact. Conjunctivae were clear. Oropharyngeal: Pharynx without any erythema edema. Tongue is midline without deviation. Buccal mucosa is moist without any masses or lesions NECK: Supple without any masses. Trachea midline no deviation. No JVD, no bruits are appreciated CARDIAC: Regular rhythm, regular rate. S1/S2 are heard. No murmurs gallops or rubs. LUNGS: CTAB; chest tube in place left lung ABDOMEN: Soft, nontender. Nondistended. Bowel sounds heard in all 4 quadrants. No organomegaly or masses. Negative rebound, negative guarding EXTREMITIES: No edema, pulses are equal bilaterally. No cyanosis or clubbing NEUROLOGY: Mood and affect appear appropriate. Cranial nerves II through XII grossly intact. Muscle strength 5/5 in upper and lower extremities bilaterally. Deep tendon reflexes are 2+ in upper and lower extremities bilaterally. - Urinary Catheter Management Indwelling Urethral Catheter Cath placed during this visit: yes, but has since been removed by the nurse Reason for continuing: Not indwelling catheter Insertion date: 03/15/18 Insertion time: 14:51 Removal date: 03/15/18 Removal time: 17:45 Results - Labs CBC & Chem 7: 03/16/18 03:32 03/16/18 03:31 Laboratory Results - last 24 hr 03/16/18 03/16/18 03:31 03:32 WBC 11.6 H RBC 3.62 L Hgb 10.5 L Hct 32.0 L MCV 88.5 MCH 29.1 MCHC 32.9 RDW 14.3 Plt Count 278 MPV 8.9 Neut % (Auto) 84.8 H Lymph % (Auto) 7.2 L [place] % (Auto) 7.9 Eos % (Auto) 0.0 Baso % (Auto) 0.1 Neut # (Auto) 9.8 H Lymph # (Auto) 0.8 L [place] # (Auto) 0.9 Eos # (Auto) 0.0 Baso # (Auto) 0.0 WBC Differential . Differential Comment Auto diff final Sodium 141 Potassium 3.7 Chloride 102 Carbon Dioxide 28.1 Anion Gap 11 BUN 6 L Creatinine 0.93 Estimated GFR Greater than 89 Random Glucose 151 H Calcium 8.0 L Vancomycin Trough 19.3 H Microbiology 03/12/18 22:00 Sputum - Expectorated Sputum Gram Stain - Final 03/12/18 22:00 Sputum - Expectorated Sputum Sputum Culture - Final Heavy growth normal respiratory theresa 03/12/18 20:30 Blood - Peripheral Aerobic Blood Culture - Preliminary No growth in 3 days 03/12/18 20:30 Blood - Peripheral Anaerobic Blood Culture - Preliminary No growth in 3 days 03/12/18 20:25 Blood - Peripheral Aerobic Blood Culture - Preliminary No growth in 3 days 03/12/18 20:25 Blood - Peripheral Anaerobic Blood Culture - Preliminary No growth in 3 days - Imaging Impressions Chest X-Ray 03/15/18 17:09 CONCLUSION: 1. Status post left thoracotomy with placement of left-sided chest tube. 2. No evidence of pneumothorax. - Procedures 03/15/18 1. Left video-Assisted Thoracoscopic Surgery (VATS). 2. Drainage of loculated pleural fluid cavities 3. Decortication 4. Intercostal Nerve Block Assessment and Plan - Plan 37-year-old man with Sepsis secondary to empyema-Resolved Currently on IV vancomycin and Zosyn pending culture report 2D echo report noted Atypical pneumonia of left lung Empyema of left lung CT chest noted and reviewed with finding of large left loculated pleural effusion with gas bubble represented empyema Continue with IV antibiotics including vancomycin and Zosyn per infectious disease specialist pending Culture reports CTS input appreciated and s/p VATS with chest tube placement 03/15/18 Continue current breathing treatment, DuoNeb and maintain oxygen saturation above 92% 2D echo report noted History of IVDU Extensively counseled against 2D echo report noted Transaminitis-resolved hepatitis panel negative DVT prevention -Sequential compression devices
--- NOTE | 2018-03-16 13:44 | P.PNCV ---
- Note Subjective/Hospital Course: Clinically better Breathing much improved Maintain chest tube to drainage Repeat chest x-ray in a.m. Objective: Vital Signs - 24 hr 03/15/18 16:45 03/15/18 17:00 03/15/18 17:15 Temperature 98.6 F Pulse Rate 120 H 89 85 Respiratory Rate 22 16 22 Blood Pressure 136/85 125/74 121/72 Pulse Oximetry 94 L 98 95 03/15/18 17:30 03/15/18 17:45 03/15/18 18:00 Temperature 98.6 F Pulse Rate 82 87 82 Respiratory Rate 18 22 22 Blood Pressure 116/71 121/76 122/75 Pulse Oximetry 94 L 96 97 03/15/18 18:33 03/15/18 19:00 03/15/18 20:00 Temperature 98.8 F 98.9 F Pulse Rate 84 85 84 Respiratory Rate 23 18 20 Blood Pressure 133/63 126/72 Pulse Oximetry 95 97 03/16/18 00:00 03/16/18 04:00 03/16/18 07:51 Temperature 99.2 F 97.9 F Pulse Rate 73 79 65 Respiratory Rate 18 18 16 Blood Pressure 111/69 118/70 Pulse Oximetry 94 L 96 96 03/16/18 08:00 03/16/18 12:00 Temperature 97.9 F 98.3 F Pulse Rate 67 88 Respiratory Rate 18 18 Blood Pressure 128/71 120/72 Pulse Oximetry 95 98 Labs: Laboratory Results - last 12 hr 03/16/18 03/16/18 03:31 03:32 WBC 11.6 H RBC 3.62 L Hgb 10.5 L Hct 32.0 L MCV 88.5 MCH 29.1 MCHC 32.9 RDW 14.3 Plt Count 278 MPV 8.9 Neut % (Auto) 84.8 H Lymph % (Auto) 7.2 L [place] % (Auto) 7.9 Eos % (Auto) 0.0 Baso % (Auto) 0.1 Neut # (Auto) 9.8 H Lymph # (Auto) 0.8 L [place] # (Auto) 0.9 Eos # (Auto) 0.0 Baso # (Auto) 0.0 WBC Differential . Differential Comment Auto diff final Sodium 141 Potassium 3.7 Chloride 102 Carbon Dioxide 28.1 Anion Gap 11 BUN 6 L Creatinine 0.93 Estimated GFR Greater than 89 Random Glucose 151 H Calcium 8.0 L Vancomycin Trough 19.3 H Result Diagrams: 03/16/18 03:32 03/16/18 03:31
--- NOTE | 2018-03-16 14:30 | P.PNID ---
Subjective Remarks: 37-year-old white male, who presented to Emergency Room with chest pain. The patient notes that he has been feeling sick for the past 3 weeks with pain in his left side of the chest. He said that he had pulled a muscle. He was using a TENS unit from a friend, but the pain was not improving. He was evaluated in the emergency department and was noted to have altered consciousness and they felt like he may have overdosed on heroin. The patient, however, denies using any drugs. He states that he used IV drugs in the past and he quit in 2009. He notes that he was starting to develop cough with rene sputum and his breathing was getting worse before admission. Patient underwent thoracotomy on 03/15/2018. Notes that his breathing is much better. States that he has some soreness where the chest tube exits the left chest. Has serosanguineous drainage from the chest tube. Afebrile. Denies chills. No cough. Allergies/Adverse Reactions: Allergies No Known Allergies Allergy (Verified 03/12/18 19:47) Objective Vital Signs 03/15/18 16:45 03/15/18 17:00 03/15/18 17:15 Temperature 98.6 F Pulse Rate 120 H 89 85 Respiratory Rate 22 16 22 Blood Pressure 136/85 125/74 121/72 Pulse Oximetry 94 L 98 95 03/15/18 17:30 03/15/18 17:45 03/15/18 18:00 Temperature 98.6 F Pulse Rate 82 87 82 Respiratory Rate 18 22 22 Blood Pressure 116/71 121/76 122/75 Pulse Oximetry 94 L 96 97 03/15/18 18:33 03/15/18 19:00 03/15/18 20:00 Temperature 98.8 F 98.9 F Pulse Rate 84 85 84 Respiratory Rate 23 18 20 Blood Pressure 133/63 126/72 Pulse Oximetry 95 97 03/16/18 00:00 03/16/18 04:00 03/16/18 07:51 Temperature 99.2 F 97.9 F Pulse Rate 73 79 65 Respiratory Rate 18 18 16 Blood Pressure 111/69 118/70 Pulse Oximetry 94 L 96 96 03/16/18 08:00 03/16/18 12:00 03/16/18 14:05 Temperature 97.9 F 98.3 F Pulse Rate 67 88 79 Respiratory Rate 18 18 16 Blood Pressure 128/71 120/72 Pulse Oximetry 95 98 Intake & Output 03/15/18 03/16/18 03/16/18 18:59 06:59 18:59 Intake Total 2766.5 / 2766.5 1910.5 / 1910.5 1365.5 / 1365.5 Output Total 1000 / 1000 1750 / 1750 Balance 1766.5 / 1766.5 160.5 / 160.5 1365.5 / 1365.5 Weight 73.1 kg Intake: IV 1446.5 / 1446.5 470.5 / 470.5 1365.5 / 1365.5 NS Inj 1,000 ML @ 100 mls/hr IV 719 / 719 0 / 0 900 / 900 .CONT .Q10H AMY Rx#:[id number] Zosyn 4.5 GM Premix 4.5 gm In 200 / 200 205 / 205 200 / 200 100 ml @ 200 mls/hr IV.SIG Q6H AMY Rx#:[id number] Vancomycin Inj 1,250 MG In NS 527.5 / 527.5 265.5 / 265.5 265.5 / 265.5 Inj 250 ML @ 250 mls/hr IV.SIG Q8H AMY Rx#:[id number] Oral 220 / 220 1440 / 1440 Anesthesia Amount 1100 / 1100 Output: Urine 1600 / 1600 Estimated Blood Loss 200 / 200 Urine Amount (Catheter) 550 / 550 Indwelling Urethral Catheter 550 / 550 Wound Drainage 150 / 150 Left Posterior Chest 150 / 150 Chest Tube Drainage 250 / 250 #1 Left Mid-Axillary Chest 250 / 250 Other: Date of Last Bowel Movement 03/14/18 03/14/18 # Bowel Movements 0 03/15/18 15:34 Tissue - Lung Gram Stain - Pending 03/15/18 15:34 Tissue - Lung Wound Culture - Pending 03/15/18 15:34 Fluid - Pleural fluid Fungal Smear - Pending 03/15/18 15:34 Fluid - Pleural fluid Fungal Culture - Pending 03/15/18 15:34 Fluid - Pleural fluid Acid Fast Bacilli Smear - Pending 03/15/18 15:34 Fluid - Pleural fluid Mycobacterial Culture - Pending 03/15/18 15:34 Fluid - Pleural fluid Gram Stain - Pending 03/15/18 15:34 Fluid - Pleural fluid Wound Culture - Pending 03/15/18 15:34 Tissue - Lung Fungal Smear - Pending 03/15/18 15:34 Tissue - Lung Fungal Culture - Pending 03/15/18 15:34 Tissue - Lung Acid Fast Bacilli Smear - Pending 03/15/18 15:34 Tissue - Lung Mycobacterial Culture - Pending 03/12/18 20:30 Blood - Peripheral Aerobic Blood Culture - Preliminary No growth in 4 days 03/12/18 20:30 Blood - Peripheral Anaerobic Blood Culture - Preliminary No growth in 4 days 03/12/18 20:25 Blood - Peripheral Aerobic Blood Culture - Preliminary No growth in 4 days 03/12/18 20:25 Blood - Peripheral Anaerobic Blood Culture - Preliminary No growth in 4 days 03/12/18 22:00 Sputum - Expectorated Sputum Gram Stain - Final 03/12/18 22:00 Sputum - Expectorated Sputum Sputum Culture - Final Heavy growth normal respiratory theresa 03/13/18 16:40 Urine - Random Urine Streptococcus pneumoniae Antigen (M - Final Presumptive negative for streptococcus pneumoniae antigen, suggesting no current or recent infection. Infection due to Streptococcus pneumoniae cannot be ruled out since the antigen present in the sample may be below the detection limit of the test. 03/13/18 16:40 Urine - Random Urine Legionella Antigen - Final Presumptive negative for Legionella pneumophila serogroup 1 antigen in urine, suggesting no recent or recurrent infection. Infection due to Legionella cannot be ruled out since other serogroups and species may cause disease, antigen may not be present in urine in early infection, and the level of antigen present in the urine may be below the detection limit of the test. Lab - Hematology Results 03/16/18 03:32 WBC 11.6 H RBC 3.62 L Hgb 10.5 L Hct 32.0 L MCV 88.5 MCH 29.1 MCHC 32.9 RDW 14.3 Plt Count 278 MPV 8.9 Neut % (Auto) 84.8 H Lymph % (Auto) 7.2 L [place] % (Auto) 7.9 Eos % (Auto) 0.0 Baso % (Auto) 0.1 Neut # (Auto) 9.8 H Lymph # (Auto) 0.8 L [place] # (Auto) 0.9 Eos # (Auto) 0.0 Baso # (Auto) 0.0 WBC Differential . Differential Comment Auto diff final Lab - Chemistry Results 03/16/18 03:31 Sodium 141 Potassium 3.7 Chloride 102 Carbon Dioxide 28.1 Anion Gap 11 BUN 6 L Creatinine 0.93 Estimated GFR Greater than 89 Random Glucose 151 H Calcium 8.0 L Imaging: ITS Impressions Chest CTA 03/13/18 00:00 CONCLUSION: 1. There is no evidence of PE for technique. 2. Large loculated pleural effusion with gas bubbles may represent empyema. Possibility of bronchopleural fistula is not excluded at this time. 3. Dense consolidation and/or compressive collapse left lower lobe and perihilar location. Chest X-Ray 03/15/18 17:09 CONCLUSION: 1. Status post left thoracotomy with placement of left-sided chest tube. 2. No evidence of pneumothorax. Physical Exam: PHYSICAL EXAMINATION: GENERAL: Well-developed male, who is in no acute distress. HEENT: Head atraumatic. Extraocular movements grossly intact. Pupils reactive to light. No icterus. No conjunctival erythema. Oropharynx moist mucosa without lesions or thrush. NECK: Supple, no adenopathy. LUNGS: Decreased breath sounds with rhonchi at the left base. Chest tube has bloody drainage. HEART: Regular S1, S2, without audible murmurs, rubs or gallops. ABDOMEN: Bowel sounds present. Soft, nontender. EXTREMITIES: No clubbing, cyanosis or edema. SKIN: No rash. NEUROLOGIC: Nonfocal. PSYCHIATRIC: Calm and cooperative. Assessment and Plan - Plan IMPRESSION: 1. Empyema of the left lung. Status post thoracotomy and decortication. 2. Pneumonia of the left lung. RECOMMENDATIONS: 1. Continue vancomycin. 2. Continue piperacillin/tazobactam. 3. Monitor pleural fluid culture. Antibiotic adjustments once in formation on cultures become available. 4. Monitor white blood cell count. 5. Monitor temperature. 6. Monitor clinical status. Please call ID carbon accountant this weekend if cultures become available.
[2018-03-16] MEDS: Acetaminophen 325 MG Tablet PO PRN (23:57)
[2018-03-17] MEDS: Piperacil/Tazo 4.5 GM Premix 4.5 GM/100 ML BAG IV.SIG SCH ×4 (02:27→21:16)
--- NOTE | 2018-03-17 05:45 | XR ---
EXAM DATE: 03/17/2018 5:21 AM EST AGE/SEX: 37 years / Male INDICATIONS: . Left sided chest tube. CLINICAL DATA: This is the patient's subsequent encounter. Patient reports that signs and symptoms h ave been present for 3 days and indicates a pain score of 7/10. MEDICAL/SURGICAL HISTORY: None. None. COMPARISON: [facility] [place], CHEST 1V SINGLE AP, 03/15/2018. . FINDINGS: AP and lateral views of the chest demonstrate interval improvement in the consolidation of the left l daniele. Patchy areas of consolidation remain within the left base. Left thoracostomy tube without pneumo thorax. Right lung is clear. Heart is at the upper limits of normal in terms of size. CONCLUSION: Improving left lung consolidation. Electronically signed by: Ubaldo Barrett MD 03/17/2018 5:44 AM EST
[2018-03-17] MEDS: Vancomycin Inj 1,250 MG in Sodium Chlor 0.9% Inj 250 ML IV.SIG SCH ×3 (06:15→23:03)
[2018-03-17 07:00] LABS: Baso # (Auto) 0.1 th/mm3 (0.0-0.2); Baso % (Auto) 0.6 % (0.0-2.0); Eos # (Auto) 0.1 th/mm3 (0.0-0.4); Eos % (Auto) 1.1 % (0.0-4.0); Hematocrit 29.8 % (39.0-51.0); Hemoglobin 10.3 gm/dL (13.0-17.0); Lymph % (Auto) 19.1 % (9.0-44.0); Mean Corpuscular HGB Conc 34.6 % (32.0-36.0); Mean Corpuscular Volume 86.8 fL (80.0-100.0); Mean Platelet Volume 8.7 fL (7.0-11.0); Mono # (Auto) 1.4 th/mm3 (0.0-0.9); Mono % (Auto) 13.1 % (0.0-8.0); Neut % (Auto) 66.1 % (16.0-70.0); Platelet Count 332 th/mm3 (150-450); Red Blood Count 3.43 mil/mm3 (4.50-5.90); Red Cell Distribution Width 14.5 % (11.6-17.2); White Blood Count 10.7 th/mm3 (4.0-11.0)
[2018-03-17] MEDS: Folic Acid 1 MG Tablet PO SCH (08:51)
--- NOTE | 2018-03-17 12:18 | P.PN ---
Subjective Interval history: Follow-up sepsis/atypical pneumonia/empyema March 16, 2018-patient seen and examined; patient status post VATS. States not he can breathe better and denies any significant shortness of breath. March 17, 2018-patient seen and examined, breathing better, no complaint. Afebrile Physical Exam Vital signs: Vital Signs 03/16/18 14:05 03/16/18 16:00 03/16/18 20:00 Temperature 98.3 F 98.3 F Pulse Rate 79 89 81 Respiratory Rate 16 18 17 Blood Pressure 127/71 127/68 Pulse Oximetry 97 93 L 03/16/18 20:40 03/17/18 00:00 03/17/18 04:00 Temperature 98.4 F 98.3 F Pulse Rate 61 65 65 Respiratory Rate 18 16 16 Blood Pressure 135/69 133/79 Pulse Oximetry 96 96 03/17/18 09:00 03/17/18 09:02 03/17/18 12:00 Temperature 98.3 F 98.4 F Pulse Rate 66 66 61 Respiratory Rate 18 18 18 Blood Pressure 141/74 H 131/69 Pulse Oximetry 96 96 95 Intake & Output 03/16/18 03/17/18 03/17/18 18:59 06:59 18:59 Intake Total 3391.0 / 3391.0 1062.5 / 1062.5 362.5 / 362.5 Output Total 1960 / 1960 1290 / 1290 60 / 60 Balance 1431.0 / 1431.0 -227.5 / -227.5 302.5 / 302.5 Weight 73 kg Intake: IV 1631.0 / 1631.0 462.5 / 462.5 362.5 / 362.5 NS Inj 1,000 ML @ 100 mls/hr IV 900 / 900 .CONT .Q10H [facility] Rx#:[id number] Zosyn 4.5 GM Premix 4.5 gm In 200 / 200 200 / 200 100 / 100 100 ml @ 200 mls/hr IV.SIG Q6H [facility] Rx#:[id number] Vancomycin Inj 1,250 MG In NS 531.0 / 531.0 262.5 / 262.5 262.5 / 262.5 Inj 250 ML @ 250 mls/hr IV.SIG Q8H [facility] Rx#:[id number] Oral 1760 / 1760 600 / 600 Output: Urine 1850 / 1850 1180 / 1180 Chest Tube Drainage 110 / 110 110 / 110 60 / 60 #1 Left Mid-Axillary Chest 110 / 110 110 / 110 60 / 60 Other: Date of Last Bowel Movement 03/14/18 03/15/18 # Bowel Movements 0 0 Narrative: GENERAL: NAD HEENT: Head is normocephalic without any lesions or masses noted. Facial features are symmetric. Eyes: Pupils equal round reactive to light. Extraocular muscles are intact. Conjunctivae were clear. Oropharyngeal: Pharynx without any erythema edema. Tongue is midline without deviation. Buccal mucosa is moist without any masses or lesions NECK: Supple without any masses. Trachea midline no deviation. No JVD, no bruits are appreciated CARDIAC: Regular rhythm, regular rate. S1/S2 are heard. No murmurs gallops or rubs. LUNGS: CTAB; chest tube in place left lung ABDOMEN: Soft, nontender. Nondistended. Bowel sounds heard in all 4 quadrants. No organomegaly or masses. Negative rebound, negative guarding EXTREMITIES: No edema, pulses are equal bilaterally. No cyanosis or clubbing NEUROLOGY: Mood and affect appear appropriate. Cranial nerves II through XII grossly intact. Muscle strength 5/5 in upper and lower extremities bilaterally. Deep tendon reflexes are 2+ in upper and lower extremities bilaterally. - Urinary Catheter Management Indwelling Urethral Catheter Cath placed during this visit: yes, but has since been removed by the nurse Reason for continuing: Not indwelling catheter Insertion date: 03/15/18 Insertion time: 14:51 Removal date: 03/15/18 Removal time: 17:45 Results - Labs CBC & Chem 7: 03/17/18 06:18 03/17/18 06:18 Laboratory Results - last 24 hr 03/17/18 03/17/18 06:18 06:18 WBC 10.7 RBC 3.43 L Hgb 10.3 L Hct 29.8 L MCV 86.8 MCH 30.0 MCHC 34.6 RDW 14.5 Plt Count 332 MPV 8.7 Neut % (Auto) 66.1 Lymph % (Auto) 19.1 [place] % (Auto) 13.1 H Eos % (Auto) 1.1 Baso % (Auto) 0.6 Neut # (Auto) 7.0 Lymph # (Auto) 2.0 [place] # (Auto) 1.4 H Eos # (Auto) 0.1 Baso # (Auto) 0.1 WBC Differential . Differential Comment Auto diff final Creatinine 0.99 Estimated GFR 85 L Microbiology 03/15/18 15:34 Tissue - Lung Gram Stain - Final 03/15/18 15:34 Tissue - Lung Wound Culture - Preliminary No growth in 24 hours 03/15/18 15:34 Fluid - Pleural fluid Gram Stain - Final 03/15/18 15:34 Fluid - Pleural fluid Wound Culture - Preliminary No growth in 24 hours 03/15/18 15:34 Tissue - Lung Fungal Smear - Final No fungal elements seen 03/15/18 15:34 Fluid - Pleural fluid Fungal Smear - Final No fungal elements seen 03/12/18 20:30 Blood - Peripheral Aerobic Blood Culture - Final No growth in 5 days 03/12/18 20:30 Blood - Peripheral Anaerobic Blood Culture - Final No growth in 5 days 03/12/18 20:25 Blood - Peripheral Aerobic Blood Culture - Final No growth in 5 days 03/12/18 20:25 Blood - Peripheral Anaerobic Blood Culture - Final No growth in 5 days - Imaging Impressions Chest X-Ray 03/17/18 06:00 CONCLUSION: Improving left lung consolidation. - Procedures 03/15/18 1. Left video-Assisted Thoracoscopic Surgery (VATS). 2. Drainage of loculated pleural fluid cavities 3. Decortication 4. Intercostal Nerve Block Assessment and Plan - Plan 37-year-old man with Sepsis secondary to empyema-Resolved Currently on IV vancomycin and Zosyn pending culture report 2D echo report noted Atypical pneumonia of left lung Empyema of left lung CT chest noted and reviewed with finding of large left loculated pleural effusion with gas bubble represented empyema Continue with IV antibiotics including vancomycin and Zosyn per infectious disease specialist pending Culture reports CTS input appreciated and s/p VATS with chest tube placement 03/15/18. Chest tube management per CTS Continue current breathing treatment, DuoNeb and maintain oxygen saturation above 92% 2D echo report noted History of IVDU Extensively counseled against 2D echo report noted Transaminitis-resolved hepatitis panel negative DVT prevention -Sequential compression devices
[2018-03-17] MEDS ORDERED: Pharmacy Ordered Lab Info OTHER ONE (13:45)
[2018-03-18] MEDS: Piperacil/Tazo 4.5 GM Premix 4.5 GM/100 ML BAG IV.SIG SCH ×4 (01:22→20:43)
[2018-03-18] MEDS: Vancomycin Inj 1,250 MG in Sodium Chlor 0.9% Inj 250 ML IV.SIG SCH ×3 (05:28→18:44)
[2018-03-18] MEDS: Folic Acid 1 MG Tablet PO SCH (08:15)
--- NOTE | 2018-03-18 08:15 | P.PNCV ---
- Note Subjective/Hospital Course: Clinically better Breathing much improved Maintain chest tube to drainage Repeat chest x-ray in a.m. 03/18 Clinically better Chest x-ray much improved Chest tube continues to drain serous fluid Likely DC chest tube in a.m. Cultures remain negative so far Objective: Vital Signs - 24 hr 03/17/18 09:00 03/17/18 09:02 03/17/18 12:00 Temperature 98.3 F 98.4 F Pulse Rate 66 66 61 Respiratory Rate 18 18 18 Blood Pressure 141/74 H 131/69 Pulse Oximetry 96 96 95 03/17/18 12:24 03/17/18 16:00 03/17/18 20:00 Temperature 98.4 F 98.9 F Pulse Rate 61 74 71 Respiratory Rate 18 18 18 Blood Pressure 121/70 135/77 Pulse Oximetry 96 96 03/18/18 00:00 03/18/18 06:30 Temperature 98 F 98.1 F Pulse Rate 60 55 L Respiratory Rate 18 18 Blood Pressure 133/74 116/63 Pulse Oximetry 95 94 L Labs: Laboratory Results - last 12 hr 03/18/18 04:50 Creatinine 1.05 Estimated GFR 79 L Result Diagrams: 03/17/18 06:18 03/18/18 04:50
--- NOTE | 2018-03-18 10:27 | P.PN ---
Subjective Interval history: Follow-up sepsis/atypical pneumonia/empyema March 18, 2018-patient seen and examined, still with some shortness of breath , complains of left-sided chest pain with deep inspiration. Afebrile Physical Exam Vital signs: Vital Signs 03/17/18 12:00 03/17/18 12:24 03/17/18 16:00 Temperature 98.4 F 98.4 F Pulse Rate 61 61 74 Respiratory Rate 18 18 18 Blood Pressure 131/69 121/70 Pulse Oximetry 95 96 03/17/18 20:00 03/18/18 00:00 03/18/18 06:30 Temperature 98.9 F 98 F 98.1 F Pulse Rate 71 60 55 L Respiratory Rate 18 Blood Pressure 135/77 133/74 116/63 Pulse Oximetry 96 95 94 L 03/18/18 08:00 Temperature 98 F Pulse Rate 62 Respiratory Rate 18 Blood Pressure 130/59 L Pulse Oximetry 94 L Intake & Output 03/17/18 03/18/18 03/18/18 18:59 06:59 18:59 Intake Total 3105.0 / 3105.0 1145.0 / 1145.0 Output Total 2510 / 2510 500 / 500 Balance 595.0 / 595.0 645.0 / 645.0 Weight 72.4 kg Intake: IV 725.0 / 725.0 725.0 / 725.0 Zosyn 4.5 GM Premix 4.5 gm In 200 / 200 200 / 200 100 ml @ 200 mls/hr IV.SIG Q6H [facility] Rx#:[id number] Vancomycin Inj 1,250 MG In NS 525.0 / 525.0 525.0 / 525.0 Inj 250 ML @ 250 mls/hr IV.SIG Q8H [facility] Rx#:[id number] Oral 2380 / 2380 420 / 420 Output: Urine 2450 / 2450 450 / 450 Chest Tube Drainage 60 / 60 50 / 50 #1 Left Mid-Axillary Chest 60 / 60 50 / 50 Other: # Voids 1 1 Date of Last Bowel Movement 03/17/18 03/17/18 # Bowel Movements 1 Narrative: GENERAL: NAD HEENT: Head is normocephalic without any lesions or masses noted. Facial features are symmetric. Eyes: Pupils equal round reactive to light. Extraocular muscles are intact. Conjunctivae were clear. Oropharyngeal: Pharynx without any erythema edema. Tongue is midline without deviation. Buccal mucosa is moist without any masses or lesions NECK: Supple without any masses. Trachea midline no deviation. No JVD, no bruits are appreciated CARDIAC: Regular rhythm, regular rate. S1/S2 are heard. No murmurs gallops or rubs. LUNGS: Lung sounds decrease L>R; chest tube in place left lateral chest ABDOMEN: Soft, nontender. Nondistended. Bowel sounds heard in all 4 quadrants. No organomegaly or masses. Negative rebound, negative guarding EXTREMITIES: No edema, pulses are equal bilaterally. No cyanosis or clubbing NEUROLOGY: Mood and affect appear appropriate. Cranial nerves II through XII grossly intact. Muscle strength 5/5 in upper and lower extremities bilaterally. Deep tendon reflexes are 2+ in upper and lower extremities bilaterally. - Urinary Catheter Management Indwelling Urethral Catheter Cath placed during this visit: yes, but has since been removed by the nurse Reason for continuing: Not indwelling catheter Insertion date: 03/15/18 Insertion time: 14:51 Removal date: 03/15/18 Removal time: 17:45 Results - Labs CBC & Chem 7: 03/17/18 06:18 03/18/18 04:50 Laboratory Results - last 24 hr 03/17/18 03/18/18 14:08 04:50 Creatinine 1.05 Estimated GFR 79 L Vancomycin Trough 19.3 H Microbiology 03/15/18 15:34 Tissue - Lung Gram Stain - Final 03/15/18 15:34 Tissue - Lung Wound Culture - Preliminary No growth in 48 hours 03/15/18 15:34 Fluid - Pleural fluid Gram Stain - Final 03/15/18 15:34 Fluid - Pleural fluid Wound Culture - Preliminary No growth in 48 hours 03/15/18 15:34 Tissue - Lung Fungal Smear - Final No fungal elements seen 03/15/18 15:34 Fluid - Pleural fluid Fungal Smear - Final No fungal elements seen 03/12/18 20:30 Blood - Peripheral Aerobic Blood Culture - Final No growth in 5 days 03/12/18 20:30 Blood - Peripheral Anaerobic Blood Culture - Final No growth in 5 days 03/12/18 20:25 Blood - Peripheral Aerobic Blood Culture - Final No growth in 5 days 03/12/18 20:25 Blood - Peripheral Anaerobic Blood Culture - Final No growth in 5 days - Procedures 03/15/18 1. Left video-Assisted Thoracoscopic Surgery (VATS). 2. Drainage of loculated pleural fluid cavities 3. Decortication 4. Intercostal Nerve Block Assessment and Plan - Plan 37-year-old man with Sepsis secondary to empyema-Resolved Currently on IV vancomycin and Zosyn pending culture report 2D echo report noted Atypical pneumonia of left lung Empyema of left lung CT chest noted and reviewed with finding of large left loculated pleural effusion with gas bubble represented empyema Continue with IV antibiotics including vancomycin and Zosyn per infectious disease specialist pending final culture reports CTS input appreciated and s/p VATS with chest tube placement 03/15/18. Chest tube management per CTS Continue current breathing treatment, DuoNeb and maintain oxygen saturation above 92% 2D echo report noted Encourage incentive spirometry, start Acapella History of IVDU Extensively counseled against 2D echo report noted Transaminitis-resolved hepatitis panel negative DVT prevention -Sequential compression devices
[2018-03-18] MEDS ORDERED: Pharmacy Ordered Lab Info OTHER ONE (15:00)
[2018-03-19] MEDS: Piperacil/Tazo 4.5 GM Premix 4.5 GM/100 ML BAG IV.SIG SCH ×4 (02:08→19:32)
[2018-03-19] MEDS: Vancomycin Inj 1,250 MG in Sodium Chlor 0.9% Inj 250 ML IV.SIG SCH ×2 (05:06→18:11)
--- NOTE | 2018-03-19 08:42 | P.PNIM ---
Subjective Interval history: Patient reports that left sided pleuritic chest pain is under control. Reports breathing is better every day. Denies any nausea or vomiting. Physical Exam Vital signs: Vital Signs 03/18/18 12:00 03/18/18 16:00 03/18/18 19:45 Temperature 98.7 F 99.2 F Pulse Rate 69 67 Respiratory Rate 18 18 Blood Pressure 132/77 132/68 Pulse Oximetry 97 95 95 03/18/18 20:00 03/19/18 01:05 03/19/18 06:00 Temperature 97.9 F 98.5 F 98.4 F Pulse Rate 66 71 55 L Respiratory Rate 18 18 17 Blood Pressure 126/67 123/65 131/61 Pulse Oximetry 96 93 L 97 03/19/18 07:56 Temperature Pulse Rate 75 Respiratory Rate 16 Blood Pressure Pulse Oximetry Intake & Output 03/18/18 03/19/18 03/19/18 18:59 06:59 18:59 Intake Total 1880 / 1880 725.0 / 725.0 Output Total 1650 / 1650 60 / 60 Balance 230 / 230 665.0 / 665.0 Weight 71.8 kg Intake: IV 200 / 200 725.0 / 725.0 Zosyn 4.5 GM Premix 4.5 gm In 200 / 200 200 / 200 100 ml @ 200 mls/hr IV.SIG Q6H [facility]Y Rx#:[id number] Vancomycin Inj 1,250 MG In NS 525.0 / 525.0 Inj 250 ML @ 250 mls/hr IV.SIG Q12H [facility] Rx#:[id number] Oral 1680 / 1680 Output: Urine 1650 / 1650 Chest Tube Drainage 60 / 60 #1 Left Mid-Axillary Chest 60 / 60 Other: # Voids 1 Date of Last Bowel Movement 03/17/18 03/17/18 # Bowel Movements 1 Narrative: GENERAL: Patient sitting up on colic. Appears comfortable. Alert and oriented x3. SKIN: Warm and dry. HEAD: Normocephalic. EYES: No scleral icterus. No injection or drainage. NECK: Supple, trachea midline. No JVD. CARDIOVASCULAR: Regular rate and rhythm without murmurs, gallops, or rubs. RESPIRATORY: Breath sounds slightly decreased on the left. Left side chest tube in place with serosanguineous drainage.. No accessory muscle use. GASTROINTESTINAL: Abdomen soft, non-tender, nondistended. MUSCULOSKELETAL: No cyanosis, or edema. BACK: Nontender without obvious deformity. No CVA tenderness. - Urinary Catheter Management Indwelling Urethral Catheter Cath placed during this visit: yes, but has since been removed by the nurse Reason for continuing: Not indwelling catheter Insertion date: 03/15/18 Insertion time: 14:51 Removal date: 03/15/18 Removal time: 17:45 Results - Labs CBC & Chem 7: 03/17/18 06:18 03/18/18 04:50 Microbiology 03/15/18 15:34 Tissue - Lung Gram Stain - Final 03/15/18 15:34 Tissue - Lung Wound Culture - Preliminary No growth in 48 hours 03/15/18 15:34 Fluid - Pleural fluid Gram Stain - Final 03/15/18 15:34 Fluid - Pleural fluid Wound Culture - Preliminary No growth in 48 hours - Procedures 03/15/18 1. Left video-Assisted Thoracoscopic Surgery (VATS). 2. Drainage of loculated pleural fluid cavities 3. Decortication 4. Intercostal Nerve Block Assessment and Plan - Plan 37-year-old man with //Sepsis secondary to empyema-Resolved Currently on IV vancomycin and Zosyn pending culture report 2D echo report noted //Atypical pneumonia of left lung //Empyema of left lung CT chest noted and reviewed with finding of large left loculated pleural effusion with gas bubble represented empyema Continue with IV antibiotics including vancomycin and Zosyn per infectious disease specialist pending final culture reports CTS input appreciated and s/p VATS with chest tube placement 03/15/18. Chest tube management per CTS Continue current breathing treatment, DuoNeb and maintain oxygen saturation above 92% 2D echo report noted Encourage incentive spirometry, start Acapella\ = 03/19. Micro continues negative. Continue IV antibiotics as per ID. Chest tube as per cardiothoracic surgery //History of IVDU Extensively counseled against 2D echo report noted /Transaminitis-resolved hepatitis panel negative //DVT prevention -Sequential compression devices Discussed Condition With: Patient. Will discuss with nursing at [facility].
[2018-03-19] MEDS: Folic Acid 1 MG Tablet PO SCH (09:00)
[2018-03-19 09:52] LABS: Baso # (Auto) 0.1 th/mm3 (0.0-0.2); Baso % (Auto) 0.6 % (0.0-2.0); Eos # (Auto) 0.2 th/mm3 (0.0-0.4); Eos % (Auto) 1.4 % (0.0-4.0); Hematocrit 32.3 % (39.0-51.0); Lymph # (Auto) 2.1 th/mm3 (1.0-4.8); Lymph % (Auto) 15.9 % (9.0-44.0); Mean Corpuscular Hemoglobin 29.5 pg (27.0-34.0); Mean Corpuscular Volume 86.7 fL (80.0-100.0); Mean Platelet Volume 7.8 fL (7.0-11.0); Mono # (Auto) 1.3 th/mm3 (0.0-0.9); Neut # (Auto) 9.6 th/mm3 (1.8-7.7); Neut % (Auto) 72.1 % (16.0-70.0); Platelet Count 446 th/mm3 (150-450); Red Blood Count 3.72 mil/mm3 (4.50-5.90); Red Cell Distribution Width 14.9 % (11.6-17.2); White Blood Count 13.4 th/mm3 (4.0-11.0)
[2018-03-19 10:25] LABS: Anion Gap 9 meq/L (5-15); Aspartate Aminotransferase 53 U/L (15-37); Blood Urea Nitrogen 6 mg/dL (7-18); Calcium 8.5 mg/dL (8.5-10.1); Carbon Dioxide 27.8 meq/L (21.0-32.0); Chloride 105 meq/L (98-107); Glomerular Filtration Rate Greater Than 89 mL/min (>89); Glucose,Random 83 mg/dL (74-106); Potassium 3.3 meq/L (3.5-5.1); Sodium 142 meq/L (136-145)
[2018-03-19 10:26] LABS: Alanine Aminotransferase 69 U/L (12-78)
[2018-03-19 10:28] LABS: Alkaline Phosphatase 154 U/L (45-117); Total Protein 6.8 g/dL (6.4-8.2)
--- NOTE | 2018-03-19 13:21 | P.PNID ---
Subjective Remarks: Patient says that he feels better. Chest tube removed this morning. Denies chills. No sputum production. Patient underwent thoracotomy on 03/15/2018. Afebrile. Presented to Emergency Room with chest pain. The patient notes that he has been feeling sick for the past 3 weeks with pain in his left side of the chest. He said that he had pulled a muscle. He was using a TENS unit from a friend, but the pain was not improving. He was evaluated in the emergency department and was noted to have altered consciousness and they felt like he may have overdosed on heroin. The patient, however, denies using any drugs. He states that he used IV drugs in the past and he quit in 2009. He notes that he was starting to develop cough with rene sputum and his breathing was getting worse before admission. Allergies/Adverse Reactions: Allergies No Known Allergies Allergy (Verified 03/12/18 19:47) Objective Vital Signs 03/18/18 16:00 03/18/18 19:45 03/18/18 20:00 Temperature 99.2 F 97.9 F Pulse Rate 67 66 Respiratory Rate 18 18 Blood Pressure 132/68 126/67 Pulse Oximetry 95 95 96 03/19/18 01:05 03/19/18 06:00 03/19/18 07:56 Temperature 98.5 F 98.4 F Pulse Rate 71 55 L 75 Respiratory Rate 18 17 16 Blood Pressure 123/65 131/61 Pulse Oximetry 93 L 97 03/19/18 08:00 Temperature 97.2 F L Pulse Rate 83 Respiratory Rate 20 Blood Pressure 133/69 Pulse Oximetry 94 L Intake & Output 03/18/18 03/19/18 03/19/18 18:59 06:59 18:59 Intake Total 1880 / 1880 725.0 / 725.0 100 / 100 Output Total 1650 / 1650 60 / 60 Balance 230 / 230 665.0 / 665.0 100 / 100 Weight 71.8 kg Intake: IV 200 / 200 725.0 / 725.0 100 / 100 Zosyn 4.5 GM Premix 4.5 gm In 200 / 200 200 / 200 100 / 100 100 ml @ 200 mls/hr IV.SIG Q6H [facility] Rx#:[id number] Vancomycin Inj 1,250 MG In NS 525.0 / 525.0 Inj 250 ML @ 250 mls/hr IV.SIG Q12H [facility] Rx#:[id number] Oral 1680 / 1680 Output: Urine 1650 / 1650 Chest Tube Drainage 60 / 60 #1 Left Mid-Axillary Chest 60 / 60 Other: # Voids 1 Date of Last Bowel Movement 03/17/18 03/17/18 03/17/18 # Bowel Movements 1 03/15/18 15:34 Tissue - Lung Gram Stain - Final 03/15/18 15:34 Tissue - Lung Wound Culture - Final No growth in 72 hours (aerobically and anaerobically ) 03/15/18 15:34 Fluid - Pleural fluid Gram Stain - Final 03/15/18 15:34 Fluid - Pleural fluid Wound Culture - Final No growth in 72 hours (aerobically and anaerobically ) 03/15/18 15:34 Tissue - Lung Fungal Smear - Final No fungal elements seen 03/15/18 15:34 Tissue - Lung Fungal Culture - Pending 03/15/18 15:34 Fluid - Pleural fluid Fungal Smear - Final No fungal elements seen 03/15/18 15:34 Fluid - Pleural fluid Fungal Culture - Pending 03/12/18 20:30 Blood - Peripheral Aerobic Blood Culture - Final No growth in 5 days 03/12/18 20:30 Blood - Peripheral Anaerobic Blood Culture - Final No growth in 5 days 03/12/18 20:25 Blood - Peripheral Aerobic Blood Culture - Final No growth in 5 days 03/12/18 20:25 Blood - Peripheral Anaerobic Blood Culture - Final No growth in 5 days 03/15/18 15:34 Fluid - Pleural fluid Acid Fast Bacilli Smear - Pending 03/15/18 15:34 Fluid - Pleural fluid Mycobacterial Culture - Pending 03/15/18 15:34 Tissue - Lung Acid Fast Bacilli Smear - Pending 03/15/18 15:34 Tissue - Lung Mycobacterial Culture - Pending Lab - Hematology Results 03/19/18 07:56 WBC 13.4 H RBC 3.72 L Hgb 11.0 L Hct 32.3 L MCV 86.7 MCH 29.5 MCHC 34.0 RDW 14.9 Plt Count 446 D MPV 7.8 Neut % (Auto) 72.1 H Lymph % (Auto) 15.9 [place] % (Auto) 10.0 H Eos % (Auto) 1.4 Baso % (Auto) 0.6 Neut # (Auto) 9.6 H Lymph # (Auto) 2.1 [place] # (Auto) 1.3 H Eos # (Auto) 0.2 Baso # (Auto) 0.1 WBC Differential . Differential Comment Auto diff final Lab - Chemistry Results 03/18/18 03/19/18 04:50 07:56 Sodium 142 Potassium 3.3 L Chloride 105 Carbon Dioxide 27.8 Anion Gap 9 BUN 6 L Creatinine 1.05 0.93 Estimated GFR 79 L Greater than 89 Random Glucose 83 Calcium 8.5 Total Bilirubin 0.4 AST 53 H ALT 69 Alkaline Phosphatase 154 H Total Protein 6.8 Albumin 2.0 L Imaging: ITS Impressions Chest CTA 03/13/18 00:00 CONCLUSION: 1. There is no evidence of PE for technique. 2. Large loculated pleural effusion with gas bubbles may represent empyema. Possibility of bronchopleural fistula is not excluded at this time. 3. Dense consolidation and/or compressive collapse left lower lobe and perihilar location. Chest X-Ray 03/17/18 06:00 CONCLUSION: Improving left lung consolidation. Physical Exam: PHYSICAL EXAMINATION: GENERAL: No acute distress HEENT: No icterus. No conjunctival erythema. Oropharynx moist mucosa without lesions or thrush. NECK: Supple, no adenopathy. LUNGS: Decreased breath sounds throughout. HEART: Regular S1, S2, without audible murmurs, rubs or gallops. ABDOMEN: Bowel sounds present. Soft, nontender. EXTREMITIES: No clubbing, cyanosis or edema. SKIN: No rash. NEUROLOGIC: Nonfocal. PSYCHIATRIC: Calm and cooperative. Assessment and Plan - Plan IMPRESSION: 1. Empyema of the left lung. Status post thoracotomy and decortication. Cultures negative. 2. Pneumonia of the left lung. Improved. RECOMMENDATIONS: 1. Continue vancomycin. 2. Continue piperacillin/tazobactam. 3. Okay to stop IV antibiotics tomorrow and switch to p.o. Augmentin 500 mg p.o. 3 times daily for 10 days. Follow-up with [facility] on discharge.
--- NOTE | 2018-03-19 16:07 | P.PNCV ---
- Note Subjective/Hospital Course: Clinically better Breathing much improved Maintain chest tube to drainage Repeat chest x-ray in a.m. 03/18 Clinically better Chest x-ray much improved Chest tube continues to drain serous fluid Likely DC chest tube in a.m. Cultures remain negative so far 03/19 minimal drainage from chest tube over night chest tube dc without difficulty on room air no growth in cultures to date Objective: Vital Signs - 24 hr 03/18/18 19:45 03/18/18 20:00 03/19/18 01:05 Temperature 97.9 F 98.5 F Pulse Rate 66 71 Respiratory Rate 18 18 Blood Pressure 126/67 123/65 Pulse Oximetry 95 96 93 L 03/19/18 06:00 03/19/18 07:56 03/19/18 08:00 Temperature 98.4 F 97.2 F L Pulse Rate 55 L 75 83 Respiratory Rate 17 16 20 Blood Pressure 131/61 133/69 Pulse Oximetry 97 94 L GENERAL: A&O x 3 SKIN: Warm and dry. HEAD: Normocephalic. EYES: No scleral icterus. No injection or drainage. NECK: Supple, trachea midline. No JVD or lymphadenopathy. CARDIOVASCULAR: Regular rate and rhythm without murmurs, gallops, or rubs. RESPIRATORY: chest tube removed without difficulty Vaseline gauze dressing to chest GASTROINTESTINAL: Abdomen soft, non-tender, nondistended. MUSCULOSKELETAL: No cyanosis, or edema. BACK: Nontender without obvious deformity. No CVA tenderness. Labs: Laboratory Results - last 12 hr 03/19/18 03/19/18 07:56 07:56 WBC 13.4 H RBC 3.72 L Hgb 11.0 L Hct 32.3 L MCV 86.7 MCH 29.5 MCHC 34.0 RDW 14.9 Plt Count 446 D MPV 7.8 Neut % (Auto) 72.1 H Lymph % (Auto) 15.9 [place] % (Auto) 10.0 H Eos % (Auto) 1.4 Baso % (Auto) 0.6 Neut # (Auto) 9.6 H Lymph # (Auto) 2.1 [place] # (Auto) 1.3 H Eos # (Auto) 0.2 Baso # (Auto) 0.1 WBC Differential . Differential Comment Auto diff final Sodium 142 Potassium 3.3 L Chloride 105 Carbon Dioxide 27.8 Anion Gap 9 BUN 6 L Creatinine 0.93 Estimated GFR Greater than 89 Random Glucose 83 Calcium 8.5 Total Bilirubin 0.4 AST 53 H ALT 69 Alkaline Phosphatase 154 H Total Protein 6.8 Albumin 2.0 L Result Diagrams: 03/19/18 07:56 03/19/18 07:56 - Plan (1) Empyema of lung Plan: s/p Left VATS chest tube removed leave current dressing in place x 48 hours then ok to remove and shower daily
[2018-03-20] MEDS: Piperacil/Tazo 4.5 GM Premix 4.5 GM/100 ML BAG IV.SIG SCH ×2 (01:03→09:02)
[2018-03-20 05:00] VITALS: TEMP 98.5
[2018-03-20] MEDS ORDERED: Pharmacy Ordered Lab Info OTHER ONE (05:45)
[2018-03-20] MEDS: Vancomycin Inj 1,250 MG in Sodium Chlor 0.9% Inj 250 ML IV.SIG SCH (05:47)
--- NOTE | 2018-03-20 09:00 | P.PNIM ---
Subjective Interval history: Says he is feeling well. Denies any chest pain. Reports shortness of breath much improved. Says he feels like going home. Discussed the importance of following up with consultants as outpatient. Patient conveys understanding. Physical Exam Vital signs: Vital Signs 03/19/18 12:00 03/19/18 16:00 03/19/18 20:00 Temperature 98.3 F 98.9 F 98.3 F Pulse Rate 68 76 77 Respiratory Rate 20 20 20 Blood Pressure 126/59 L 139/68 137/63 Pulse Oximetry 95 94 L 95 03/20/18 00:30 03/20/18 04:59 Temperature 98.6 F 98.5 F Pulse Rate 95 H 59 L Respiratory Rate 20 18 Blood Pressure 128/71 122/83 Pulse Oximetry 97 96 Intake & Output 03/19/18 03/20/18 03/20/18 18:59 06:59 18:59 Intake Total 3630 / 3630 725.0 / 725.0 Output Total 2061 / 2061 Balance 1569 / 1569 725.0 / 725.0 Weight 69.5 kg Intake: IV 200 / 200 725.0 / 725.0 Zosyn 4.5 GM Premix 4.5 gm In 200 / 200 200 / 200 100 ml @ 200 mls/hr IV.SIG Q6H AMY Rx#:[id number] Vancomycin Inj 1,250 MG In NS 525.0 / 525.0 Inj 250 ML @ 250 mls/hr IV.SIG Q12H AMY Rx#:[id number] Oral 1680 / 1680 Oral Supplement 1650 / 1650 Anesthesia Amount 100 / 100 Output: Urine 1650 / 1650 Stool 1 / Estimated Blood Loss 200 / 200 Wound Drainage 150 / 150 Left Posterior Chest 150 / 150 Chest Tube Drainage 60 / 60 #1 Left Mid-Axillary Chest 60 / 60 Other: # Voids 1 Date of Last Bowel Movement 03/17/18 # Bowel Movements 1 Narrative: GENERAL: Patient sitting up in bed. Appears comfortable. Alert and oriented x3. SKIN: Warm and dry. HEAD: Normocephalic. EYES: No scleral icterus. No injection or drainage. NECK: Supple, trachea midline. No JVD. CARDIOVASCULAR: Regular rate and rhythm without murmurs, gallops, or rubs. RESPIRATORY: Breath sounds equal bilaterally. No rhonchi. No rales. Left- sided chest dressing clean dry and intact.. GASTROINTESTINAL: Abdomen soft, non-tender, nondistended. MUSCULOSKELETAL: No cyanosis, or edema. BACK: Nontender without obvious deformity. No CVA tenderness. - Urinary Catheter Management Indwelling Urethral Catheter Cath placed during this visit: yes, but has since been removed by the nurse Reason for continuing: Not indwelling catheter Insertion date: 03/15/18 Insertion time: 14:51 Removal date: 03/15/18 Removal time: 17:45 Results - Labs CBC & Chem 7: 03/19/18 07:56 03/20/18 05:12 Laboratory Results - last 24 hr 03/19/18 03/19/18 03/20/18 07:56 07:56 04:40 WBC 13.4 H RBC 3.72 L Hgb 11.0 L Hct 32.3 L MCV 86.7 MCH 29.5 MCHC 34.0 RDW 14.9 Plt Count 446 D MPV 7.8 Neut % (Auto) 72.1 H Lymph % (Auto) 15.9 [place] % (Auto) 10.0 H Eos % (Auto) 1.4 Baso % (Auto) 0.6 Neut # (Auto) 9.6 H Lymph # (Auto) 2.1 [place] # (Auto) 1.3 H Eos # (Auto) 0.2 Baso # (Auto) 0.1 WBC Differential . Differential Comment Auto diff final Sodium 142 Potassium 3.3 L Chloride 105 Carbon Dioxide 27.8 Anion Gap 9 BUN 6 L Creatinine 0.93 Estimated GFR Greater than 89 Random Glucose 83 Calcium 8.5 Total Bilirubin 0.4 AST 53 H ALT 69 Alkaline Phosphatase 154 H Total Protein 6.8 Albumin 2.0 L Vancomycin Trough 16.1 H 03/20/18 05:12 WBC RBC Hgb Hct MCV MCH MCHC RDW Plt Count MPV Neut % (Auto) Lymph % (Auto) [place] % (Auto) Eos % (Auto) Baso % (Auto) Neut # (Auto) Lymph # (Auto) [place] # (Auto) Eos # (Auto) Baso # (Auto) WBC Differential Differential Comment Sodium Potassium Chloride Carbon Dioxide Anion Gap BUN Creatinine 1.00 Estimated GFR 84 L Random Glucose Calcium Total Bilirubin AST ALT Alkaline Phosphatase Total Protein Albumin Vancomycin Trough Microbiology 03/15/18 15:34 Tissue - Lung Acid Fast Bacilli Smear - Final No acid fast bacilli seen 03/15/18 15:34 Fluid - Pleural fluid Acid Fast Bacilli Smear - Final No acid fast bacilli seen 03/15/18 15:34 Tissue - Lung Gram Stain - Final 03/15/18 15:34 Tissue - Lung Wound Culture - Final No growth in 72 hours (aerobically and anaerobically ) 03/15/18 15:34 Fluid - Pleural fluid Gram Stain - Final 03/15/18 15:34 Fluid - Pleural fluid Wound Culture - Final No growth in 72 hours (aerobically and anaerobically ) - Procedures 03/15/18 1. Left video-Assisted Thoracoscopic Surgery (VATS). 2. Drainage of loculated pleural fluid cavities 3. Decortication 4. Intercostal Nerve Block Assessment and Plan - Plan 37-year-old man with //Sepsis secondary to empyema-Resolved Currently on IV vancomycin and Zosyn pending culture report 2D echo report noted //Atypical pneumonia of left lung //Empyema of left lung CT chest noted and reviewed with finding of large left loculated pleural effusion with gas bubble represented empyema Continue with IV antibiotics including vancomycin and Zosyn per infectious disease specialist pending final culture reports CTS input appreciated and s/p VATS with chest tube placement 03/15/18. Chest tube management per CTS Continue current breathing treatment, DuoNeb and maintain oxygen saturation above 92% 2D echo report noted Encourage incentive spirometry, start Acapella\ = 03/19. Micro continues negative. Continue IV antibiotics as per ID. Chest tube as per cardiothoracic surgery = 03/20. Continues afebrile. Discharge home on by mouth Augmentin as per ID. //History of IVDU Extensively counseled against 2D echo report noted -no signs of endocarditis. /Transaminitis-resolved hepatitis panel negative //DVT prevention -Sequential compression devices Discussed Condition With: Patient, nurse
[2018-03-20] MEDS: Folic Acid 1 MG Tablet PO SCH (09:02)
--- NOTE | 2018-03-20 09:02 | P.DS ---
Date of admission: 03/12/18 21:50 Primary care physician: No Primary Care Physician Brief History from admission: 37-year-old male with no chronic medical illnesses who presented the hospital because of progressive shortness of breath, cough, congestion, chest discomfort. Patient states that he has normal state of health until approximately 1 month ago when he snorted an illegal drug, he does not know what it was and he indicates that he became unresponsive and was choking on his own vomit. Proxy 1 week after that he started developing cough, congestion and then progressive shortness of breath, dyspnea, pain on inspiration over the last 3 weeks. He did come to the emergency department for evaluation. Patient did have workup to find multiple abnormalities to include sepsis with fever, leukocytosis, chest x-ray with almost complete whiteout of the left lung. It was recommended by ER physician that the patient be admitted for further evaluation and management. DS: Medications - Discharge Medications Prescriptions: amoxicillin-pot clavulanate [Augmentin] 1 tab PO TID 10 Days #30 tab DS: Summary Hospital Course: CT chest showed effusion of left lung, found to be empyema. Cardiothoracic surgery was consulted, chest tube was placed in the left lung to waterseal. Infectious disease was consulted and patient was placed on IV antibiotics. Cultures negative however. Patient improved on IV antibiotics and with drainage of empyema. Chest tube was removed. Patient will be discharged on Augmentin 10-day course as per infectious disease. Patient will need to follow- up with primary care, cardiothoracic surgery as outpatient. For problem based summary from most recent progress note, please see below. 37-year-old man with //Sepsis secondary to empyema-Resolved Currently on IV vancomycin and Zosyn pending culture report 2D echo report noted //Atypical pneumonia of left lung //Empyema of left lung CT chest noted and reviewed with finding of large left loculated pleural effusion with gas bubble represented empyema Continue with IV antibiotics including vancomycin and Zosyn per infectious disease specialist pending final culture reports CTS input appreciated and s/p VATS with chest tube placement 03/15/18. Chest tube management per CTS Continue current breathing treatment, DuoNeb and maintain oxygen saturation above 92% 2D echo report noted Encourage incentive spirometry, start Acapella\ = 03/19. Micro continues negative. Continue IV antibiotics as per ID. Chest tube as per cardiothoracic surgery = 03/20. Continues afebrile. Discharge home on by mouth Augmentin as per ID. //History of IVDU Extensively counseled against 2D echo report noted -no signs of endocarditis. /Transaminitis-resolved hepatitis panel negative //DVT prevention -Sequential compression devices Discussed Condition With: Patient, nurse - Time Spent with Patient Total time spent providing and/or coordinating discharge services: Greater than 30 minutes - Quality: VTE Deep Vein Thrombosis/Pulmonary Embolism Present on Admission: No Exam Vital signs: Vital Signs 03/19/18 12:00 03/19/18 16:00 03/19/18 20:00 Temperature 98.3 F 98.9 F 98.3 F Pulse Rate 68 76 77 Respiratory Rate 20 20 20 Blood Pressure 126/59 L 139/68 137/63 Pulse Oximetry 95 94 L 95 03/20/18 00:30 03/20/18 04:59 Temperature 98.6 F 98.5 F Pulse Rate 95 H 59 L Respiratory Rate 20 18 Blood Pressure 128/71 122/83 Pulse Oximetry 97 96 Intake & Output 03/19/18 03/20/18 03/20/18 18:59 06:59 18:59 Intake Total 3630 / 3630 725.0 / 725.0 Output Total 2060 / 2061 Balance 1569 / 1569 725.0 / 725.0 Weight 69.5 kg Intake: IV 200 / 200 725.0 / 725.0 Zosyn 4.5 GM Premix 4.5 gm In 200 / 200 200 / 200 100 ml @ 200 mls/hr IV.SIG Q6H AMY Rx#:[id number] Vancomycin Inj 1,250 MG In NS 525.0 / 525.0 Inj 250 ML @ 250 mls/hr IV.SIG Q12H AMY Rx#:[id number] Oral 1680 / 1680 Oral Supplement 1650 / 1650 Anesthesia Amount 100 / 100 Output: Urine 1650 / 1650 Stool 1 / Estimated Blood Loss 200 / 200 Wound Drainage 150 / 150 Left Posterior Chest 150 / 150 Chest Tube Drainage 60 / 60 #1 Left Mid-Axillary Chest 60 / 60 Other: # Voids 1 Date of Last Bowel Movement 03/17/18 # Bowel Movements 1 Results Procedures completed during hospitalization: 03/15/18 1. Left video-Assisted Thoracoscopic Surgery (VATS). 2. Drainage of loculated pleural fluid cavities 3. Decortication 4. Intercostal Nerve Block Labs on day of discharge: Labs from last 24 hours 03/20/18 03/20/18 03/19/18 05:12 04:40 07:56 WBC RBC Hgb Hct MCV MCH MCHC RDW Plt Count MPV Neut % (Auto) Lymph % (Auto) [place] % (Auto) Eos % (Auto) Baso % (Auto) Neut # (Auto) Lymph # (Auto) [place] # (Auto) Eos # (Auto) Baso # (Auto) WBC Differential Differential Comment Sodium 142 Potassium 3.3 L Chloride 105 Carbon Dioxide 27.8 Anion Gap 9 BUN 6 L Creatinine 1.00 0.93 Estimated GFR 84 L Greater than 89 Random Glucose 83 Calcium 8.5 Total Bilirubin 0.4 AST 53 H ALT 69 Alkaline Phosphatase 154 H Total Protein 6.8 Albumin 2.0 L Vancomycin Trough 16.1 H 03/19/18 07:56 WBC 13.4 H RBC 3.72 L Hgb 11.0 L Hct 32.3 L MCV 86.7 MCH 29.5 MCHC 34.0 RDW 14.9 Plt Count 446 D MPV 7.8 Neut % (Auto) 72.1 H Lymph % (Auto) 15.9 [place] % (Auto) 10.0 H Eos % (Auto) 1.4 Baso % (Auto) 0.6 Neut # (Auto) 9.6 H Lymph # (Auto) 2.1 [place] # (Auto) 1.3 H Eos # (Auto) 0.2 Baso # (Auto) 0.1 WBC Differential . Differential Comment Auto diff final Sodium Potassium Chloride Carbon Dioxide Anion Gap BUN Creatinine Estimated GFR Random Glucose Calcium Total Bilirubin AST ALT Alkaline Phosphatase Total Protein Albumin Vancomycin Trough - Impressions ITS Impressions Chest CTA 03/13/18 00:00 CONCLUSION: 1. There is no evidence of PE for technique. 2. Large loculated pleural effusion with gas bubbles may represent empyema. Possibility of bronchopleural fistula is not excluded at this time. 3. Dense consolidation and/or compressive collapse left lower lobe and perihilar location. Chest X-Ray 03/17/18 06:00 CONCLUSION: Improving left lung consolidation. Discharge Plan - Discharge Disposition Patient Disposition: 01 Discharge Home - Discharge Condition Condition: Stable - Discharge Order Discharge Orders: Discharge Order (Routine); Ordered 03/20/18 Ordered By: Nicolás Brown - Discharge Details Anticipated Discharge Date: 03/20/18 - Physicians Team Primary Care Provider: Primary Care Samanta,Arlene Attending Provider: Nicolás Brown Other Providers: Joanne Green MD ; Maliha Joe MD
[2018-03-20 09:08] VITALS: BP 130/66; PULSE 89; RESP 22; O2SAT 95
== END 2018-03-20 11:55 | disposition home or self-care (01) ==
LOC: PHED 19:18 → PHEDA 21:50 → PH3 23:30 → N04 03-13 19:08
PROVIDERS: ADMIT Internal Medicine; ATTEND Internal Medicine